=== PATIENT | male | born 1965 ===

== ENCOUNTER 2017-08-20 19:13 | Inpatient (IN) | payer MEDICAID ==
--- NOTE | 2017-08-20 19:52 | C.PDOC ---
History Of Present Illness Patient is a 52 y/o male who presents to the ED with complaints of increased abdominal girth and increased SOB. Patient is currently speaking in 2-3 word sentences in the ED. Patient has a Hx of liver disease. Denies any use of medications. Patient has no other physical complaints at this time. Time Seen by Provider: 08/20/17 19:52 Chief Complaint (Nursing): Shortness Of Breath History Per: Patient History/Exam Limitations: no limitations Onset/Duration Of Symptoms: Gradual Current Symptoms Are (Timing): Still Present Quality: Dull Current Respiratory Medications: See Home Med List Severity: Moderate Pain Scale Rating Of: 4 Associated Symptoms: Other (increased abdominal girth). denies: Fever, Chills Recent travel outside of the [place]: No Additional History Per: Family Past Medical History Reviewed: Historical Data, Nursing Documentation, Vital Signs Vital Signs: Last Vital Signs Temp 98.9 F 08/20/17 19:38 Pulse 102 H 08/20/17 21:45 Resp 26 H 08/20/17 21:45 BP 122/82 08/20/17 21:45 Pulse Ox 97 08/20/17 21:45 - Medical History Other PMH: Liver disease Surgical History: No Surg Hx Family History: States: No Known Family Hx - Social History Hx Tobacco Use: No Hx Alcohol Use: Yes (stopped 1 month ago) Hx Substance Use: No Review Of Systems Constitutional: Negative for: Fever, Chills Eyes: Negative for: Redness ENT: Negative for: Throat Pain Cardiovascular: Negative for: Chest Pain Respiratory: Positive for: Shortness of Breath Gastrointestinal: Positive for: Abdominal Pain, Other (increased abdominal girth ). Negative for: Nausea, Vomiting Genitourinary: Negative for: Dysuria Musculoskeletal: Negative for: Back Pain Skin: Positive for: Jaundice Neurological: Positive for: Weakness Psych: Negative for: Anxiety Physical Exam - Physical Exam Appears: In Acute Distress (mild), Other (discheveled) Skin: Warm, Dry, Jaundice (grossly) Head: Normacephalic Eye(s): bilateral: Normal Inspection, Scleral Icterus Oral Mucosa: Moist Neck: Trachea Midline, Supple Chest: Symmetrical Cardiovascular: Rhythm Regular, No Murmur Respiratory: Rales (scattered at bilateral bases), No Rhonchi, No Wheezing, Other (speaking in 2-3 word sentences) Gastrointestinal/Abdominal: Bowel Sounds (tympanic), Tenderness (mild), Distention, No Guarding, No Rebound, Ascites, Other (positive fluid wave) Back: No CVA Tenderness Extremity: Pedal Edema (bilaterally), No Calf Tenderness Extremity: Bilateral: Atraumatic Pulses: Left Dorsalis Pedis: Normal, Right Dorsalis Pedis: Normal Neurological/Psych: Oriented x3 Gait: Other (limited mobility secondary to increased abdominal girth) ED Course And Treatment - Laboratory Results Result Diagrams: 08/20/17 20:30 08/20/17 20:30 O2 Sat by Pulse Oximetry: 96 (room air) Pulse Ox Interpretation: Normal - Radiology CXR: Interpreted by Me, Viewed By Me CXR Interpretation: No: Infiltrates, Fracture, Pnemothorax Progress Note: VBG, UA, and blood work ordered. Disposition Discussed With DrMaki: Mani Aleman Comment: accepted the pt on his service and took over the care at 11:24 PM Doctor Will See Patient In The: ED Counseled Patient/Family Regarding: Studies Performed, Diagnosis - Disposition Disposition: HOSPITALIZED Disposition Time: 19:52 Condition: FAIR Forms: [facility] (Danish) - POA Present On Arrival: Poor Glycemic Control - Clinical Impression Clinical Impression: Dyspnea, Jaundice, Renal insufficiency, Hyperammonemia - Scribe Statement The provider has reviewed the documentation as recorded by the Scribe Freda Yuossef All medical record entries made by the Scribe were at my direction and personally dictated by me. I have reviewed the chart and agree that the record accurately reflects my personal performance of the history, physical exam, medical decision making, and the department course for this patient. I have also personally directed, reviewed, and agree with the discharge instructions and disposition. Decision To Admit - Pt Status Changed To: Hospital Disposition Of: Inpatient - Admit Certification Admit to Inpatient:: After my assessment, the patient will require hospitalization for at least two midnights. This is because of the severity of symptoms shown, intensity of services needed, and/or the medical risk in this patient being treated as an outpatient. - InPatient: Physician Admission Certification: I certify that this patient requires 2 or more midnights of care for the following reason:: After my assessment, the patient will require hospitalization for at least two midnights. This is because of the severity of symptoms shown, intensity of services needed, and/or the medical risk in this patient being treated as an outpatient. - . Bed Request Type: Regular Admitting Physician: Mani Aleman Patient Diagnosis: Dyspnea, Jaundice, Renal insufficiency, Hyperammonemia
[2017-08-20 20:38] LABS: VENOUS BLOOD GAS BASE EXCESS -2.4 mmol/L (0.0-2.0); VENOUS BLOOD GAS PCO2 34 mmHg (40-60); VENOUS BLOOD GAS PO2 22 mm/Hg (30-55); VENOUS BLOOD PH 7.41 (7.32-7.43)
[2017-08-20 20:39] LABS: BASO # 0.1 K/uL (0.0-0.2); BASO % 0.6 % (0.0-2.0); EOS # 0.2 K/uL (0.0-0.7); EOS % 1.5 % (0.0-4.0); HEMOGLOBIN 12.2 g/dL (12.0-18.0); LYMPH # 2.5 K/uL (1.0-4.3); MEAN CORPUSCULAR HEMOGLOBIN 39.3 pg (27.0-31.0); MEAN PLATELET VOLUME 9.6 fL (7.2-11.7); MONO # 1.2 K/uL (0.0-0.8); MONO % 8.4 % (0.0-10.0); NEUT # 10.6 K/uL (1.8-7.0); NEUT % 72.5 % (50.0-75.0); RBC 3.11 Mil/uL (4.40-5.90); WHITE BLOOD COUNT 14.6 K/uL (4.8-10.8)
[2017-08-20 20:50] LABS: INR 1.5; PROTHROMBIN TIME 17.3 SECONDS (9.7-12.2)
[2017-08-20 21:00] LABS: ALB/GLOB RATIO 0.5 (1.0-2.1); ALBUMIN 2.9 g/dL (3.5-5.0); CALCIUM 7.9 mg/dl (8.6-10.4)
[2017-08-20] MEDS ORDERED: Morphine 4 MG/ML VIAL ONE (21:54)
[2017-08-20 22:13] LABS: MEAN CELL VOLUME 109.1 fL (80.0-94.0)
[2017-08-21] MEDS ORDERED: Thiamine 100 mg/ml Inj IV ONE (00:27)
--- NOTE | 2017-08-21 00:45 | CP.PCM.HP ---
<Josh Way - Last Filed: 08/21/17 01:46> History of Present Illness - History of Present Illness History of Present Illness: CC: abdominal distension with difficulty breathing Patient is a 52 year old male who presents to the ED with shortness of breath and abdominal fullness for the past 3 weeks. He is accompanied by his and daughter who offer details of his history. They explain that on July 29, 2017 , the patient went to [place] urgent care for similar symptoms and was told he has liver disease. Patient does not have a PMD due to lack of insurance and so, he did not follow up with any doctors after that visit. He is presenting to the ED this evening with persistent abdominal distention, associated with difficulty breathing and right sided lower back pain. He denies fevers, chills, chest pain, abdominal pain, changes in bowel movements. He reports that his urine has been dark red for several weeks now. He does have nausea but he has not vomited. Abdominal distention has also left him with lack of appetite secondary to "pressure on the stomach." This patient does not have any documented history of any medical conditions and he does not take any medicines currently. His and daughter explain that he has an extensive history of alcohol abuse and the patient acknowledges this however he states that he stopped drinking 2-3 months ago. The family insists that it was one month ago when he stopped consuming any form of alcohol. Prior alcohol consumption was clarified as 2 bottles of whiskey daily in addition to several beers for 20-30 years. The family and the patient but deny any seizures, loss of consciousness. Upon examination the patient is alert and responsive however his words are difficult to discern. His daughter states that he has been making nonsensical commentary this evening at times but he answers appropriately for the most part. PMD: None. patient does not have insurance PMH: "Liver Disease" Surg Hx: None Home Meds: None Allergies: NKDA Family Hx: Denies Social Hx: Patient reports drinking 2 bottles of whiskey along with several beers daily for 20-30 years but has stopped drinking the last month. Denies tobacco use and reports using marijuana years ago but not currently. Present on Admission - Present on Admission Any Indicators Present on Admission: No Review of Systems - Review of Systems Systems not reviewed;Unavailable: Altered Mental Status (questionable) - Constitutional Constitutional: Lethargy. absent: Chills, Fever - EENT Eyes: Other (yellowing of eyes). absent: Blurred Vision, Change in Vision - Cardiovascular Cardiovascular: Dyspnea (difficulty taking deep breaths), Pedal Edema. absent: Chest Pain, Diaphoresis - Respiratory Respiratory: As Per HPI, Dyspnea. absent: Cough, Wheezing - Gastrointestinal Gastrointestinal: As Per HPI, Constipation, Other (distended abdomen). absent: Abdominal Pain - Genitourinary Genitourinary: Flank Pain (right), Hematuria (dark-reddish urine) - Integumentary Integumentary: Jaundice - Neurological Neurological: Confusion. absent: Convulsions, Loss of Vision, Syncope, Tingling , Weakness - Hematologic/Lymphatic Hematologic: Easy Bleeding Past Patient History - Infectious Disease Hx of Infectious Diseases: None - Past Social History Smoking Status: Never Smoked - GASTROINTESTINAL Other/Comment: liver problem - PSYCHIATRIC Hx Substance Use: No - SURGICAL HISTORY Hx Surgeries: No Meds Allergies/Adverse Reactions: Allergies Allergy/AdvReac Type Severity Reaction Status Date / Time No Known Allergies Allergy Verified 08/20/17 19:36 Physical Exam - Head Exam Head Exam: ATRAUMATIC, NORMOCEPHALIC - Eye Exam Eye Exam: EOMI, Scleral icterus Pupil Exam: PERRL - ENT Exam ENT Exam: Mucous Membranes Moist Additional comments: blood on lips/in mouth that is dried - Respiratory Exam Respiratory Exam: Decreased Breath Sounds. absent: Accessory Muscle Use, Rhonchi, Wheezes, Respiratory Distress - Cardiovascular Exam Cardiovascular Exam: REGULAR RHYTHM, +S1, +S2 - GI/Abdominal Exam GI & Abdominal Exam: Distended, Firm. absent: Guarding, Tenderness - Extremities Exam Extremities exam: Positive for: pedal edema (+2 bilaterally) - Back Exam Back exam: CVA tenderness (R) - Neurological Exam Neurological exam: Alert - Skin Skin Exam: Dry, Warm Additional comments: jaundice diffuse- abdomen, trunk, eyes, face Results - Vital Signs Recent Vital Signs: Last Vital Signs Temp 98.9 F 08/20/17 19:38 Pulse 102 H 08/20/17 21:45 Resp 26 H 08/20/17 21:45 BP 122/82 08/20/17 21:45 Pulse Ox 96 08/20/17 23:27 - Labs Result Diagrams: 08/20/17 20:30 08/20/17 20:30 Labs: Laboratory Results - last 24 hr 08/20/17 08/20/17 08/20/17 20:30 20:30 20:30 WBC 14.6 H RBC 3.11 L Hgb 12.2 Hct 33.9 L MCV 109.1 H MCH 39.3 H MCHC 36.0 RDW 14.0 Plt Count 269 MPV 9.6 Neut % (Auto) 72.5 Lymph % (Auto) 17.0 L [place] % (Auto) 8.4 Eos % (Auto) 1.5 Baso % (Auto) 0.6 Neut # (Auto) 10.6 H Lymph # (Auto) 2.5 [place] # (Auto) 1.2 H Eos # (Auto) 0.2 Baso # (Auto) 0.1 PT 17.3 H INR 1.5 APTT 34 pO2 VBG pH VBG pCO2 VBG HCO3 VBG Total CO2 VBG O2 Sat (Calc) VBG Base Excess VBG Potassium Sodium 126 L Chloride 92 L Glucose Lactate FiO2 Potassium 3.7 Carbon Dioxide 20 L Anion Gap 18 BUN 47 H Creatinine 3.3 H Est GFR ( Amer) 24 Est GFR (Non-Af Amer) 20 Random Glucose 129 H Calcium 7.9 L Total Bilirubin 27.4 H AST 178 H ALT 60 Alkaline Phosphatase 210 H Ammonia NT-Pro-B Natriuret Pep 177 Total Protein 8.8 H Albumin 2.9 L Globulin 5.9 H Albumin/Globulin Ratio 0.5 L Lipase 277 Venous Blood Potassium 08/20/17 08/20/17 20:30 20:30 WBC RBC Hgb Hct MCV MCH MCHC RDW Plt Count MPV Neut % (Auto) Lymph % (Auto) [place] % (Auto) Eos % (Auto) Baso % (Auto) Neut # (Auto) Lymph # (Auto) [place] # (Auto) Eos # (Auto) Baso # (Auto) PT INR APTT pO2 22 L VBG pH 7.41 VBG pCO2 34 L VBG HCO3 21.4 VBG Total CO2 22.6 VBG O2 Sat (Calc) 40.1 VBG Base Excess -2.4 L VBG Potassium 3.8 Sodium 128.0 L Chloride 94.0 L Glucose 125 H Lactate 2.6 H FiO2 21.0 Potassium Carbon Dioxide Anion Gap BUN Creatinine Est GFR ( Amer) Est GFR (Non-Af Amer) Random Glucose Calcium Total Bilirubin AST ALT Alkaline Phosphatase Ammonia 78 H NT-Pro-B Natriuret Pep Total Protein Albumin Globulin Albumin/Globulin Ratio Lipase Venous Blood Potassium 3.8 Assessment & Plan - Assessment and Plan (Free Text) Plan: Ascites with jaundice Alcoholic liver disease vs infectious AST/ALT: 178/60 suggestive of alcohol related disease T. Bili: 27.4 Alk Phos: 210 PT/INR: 17.3/1.5 Lipase: 277 Follow up Hepatitis Panel Follow up UDS Follow up GGT Follow up Lipid panel Follow up amylase GI consult placed- Dr. Tony cooper appreciated NPO Follow up abdominal ultrasound Referral for paracentesis to be considered following results JUAN M No documented history of renal disease Pt has been experiencing hematuria x3 weeks Nephro consult place- Dr. Alejandro cooper appreciated BUN/Cr on admission: 47/3.3 Follow up renal/bladder ultrasound Hyperammonemia Lactulose 20mg PO given in ED x1 Follow up labs Dyspnea Likely secondary to increased intra-abdominal pressure from ascites VBG: PH- 7.41, CO2- 34, HCO3- 21.4 Follow up CXR results 02 via NC 2L Monitor vitals Hyponatremia 126 on admission Follow up AM labs NPO- fluid restriction Hx of EtOH abuse Thiamine/Folate/MV CIWA protocol Elevated blood glucose Follow up A1C Prophylaxis Protonix 40mg IV daily DVT ppx contraindicated due to bleeding risk Case discussed with Dr. Love Way D.O. <Mani Aleman - Last Filed: 08/21/17 06:05> Results - Vital Signs Recent Vital Signs: Last Vital Signs Temp 97.9 F 08/21/17 03:50 Pulse 96 H 08/21/17 03:50 Resp 18 08/21/17 04:22 BP 116/77 08/21/17 03:50 Pulse Ox 97 08/21/17 04:22 - Labs Result Diagrams: 08/20/17 20:30 08/20/17 20:30 Labs: Laboratory Results - last 24 hr 08/20/17 08/20/17 08/20/17 20:30 20:30 20:30 WBC 14.6 H RBC 3.11 L Hgb 12.2 Hct 33.9 L MCV 109.1 H MCH 39.3 H MCHC 36.0 RDW 14.0 Plt Count 269 MPV 9.6 Neut % (Auto) 72.5 Lymph % (Auto) 17.0 L [place] % (Auto) 8.4 Eos % (Auto) 1.5 Baso % (Auto) 0.6 Neut # (Auto) 10.6 H Lymph # (Auto) 2.5 [place] # (Auto) 1.2 H Eos # (Auto) 0.2 Baso # (Auto) 0.1 PT 17.3 H INR 1.5 APTT 34 pO2 VBG pH VBG pCO2 VBG HCO3 VBG Total CO2 VBG O2 Sat (Calc) VBG Base Excess VBG Potassium Sodium 126 L Chloride 92 L Glucose Lactate FiO2 Potassium 3.7 Carbon Dioxide 20 L Anion Gap 18 BUN 47 H Creatinine 3.3 H Est GFR ( Amer) 24 Est GFR (Non-Af Amer) 20 POC Glucose (mg/dL) Random Glucose 129 H Calcium 7.9 L Total Bilirubin 27.4 H AST 178 H ALT 60 Alkaline Phosphatase 210 H Ammonia NT-Pro-B Natriuret Pep 177 Total Protein 8.8 H Albumin 2.9 L Globulin 5.9 H Albumin/Globulin Ratio 0.5 L Lipase 277 Venous Blood Potassium 08/20/17 08/20/17 08/21/17 20:30 20:30 00:28 WBC RBC Hgb Hct MCV MCH MCHC RDW Plt Count MPV Neut % (Auto) Lymph % (Auto) [place] % (Auto) Eos % (Auto) Baso % (Auto) Neut # (Auto) Lymph # (Auto) [place] # (Auto) Eos # (Auto) Baso # (Auto) PT INR APTT pO2 22 L VBG pH 7.41 VBG pCO2 34 L VBG HCO3 21.4 VBG Total CO2 22.6 VBG O2 Sat (Calc) 40.1 VBG Base Excess -2.4 L VBG Potassium 3.8 Sodium 128.0 L Chloride 94.0 L Glucose 125 H Lactate 2.6 H FiO2 21.0 Potassium Carbon Dioxide Anion Gap BUN Creatinine Est GFR ( Amer) Est GFR (Non-Af Amer) POC Glucose (mg/dL) 100 Random Glucose Calcium Total Bilirubin AST ALT Alkaline Phosphatase Ammonia 78 H NT-Pro-B Natriuret Pep Total Protein Albumin Globulin Albumin/Globulin Ratio Lipase Venous Blood Potassium 3.8 Assessment & Plan - Date & Time Date: 08/21/17 (I have seen and examined the patient. I agree with the findings and plan of care as documented by Dr. Way. 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 Check Hep panel. [facility] protocol for history of alcohol abuse. Likely need for paracentesis. Consult GI. Consult Nephro for acute kidney injury. Monitor for acute changes.) Time: 06:03 Attending/Attestation - Attestation I have personally seen and examined this patient.: Yes I have fully participated in the care of the patient.: Yes I have reviewed all pertinent clinical information: Yes
[2017-08-21] MEDS ORDERED: Albumin Human 25% (12.5 gm/50 ml) IV ONE (01:32)
--- NOTE | 2017-08-21 04:05 | US ---
EXAM: US Abdomen Limited, Right Upper Quadrant CLINICAL HISTORY: 52 years old, male; Condition or disease; Liver condition; Cirrhosis; Additional info: Ascites/liver disease TECHNIQUE: Real-time ultrasound of the right upper quadrant with image documentation. COMPARISON: No relevant prior studies available. FINDINGS: Liver: Lobulated contour. Increase echogenicity. No definite mass. No intrahepatic ductal dilatation. Hepatofugal flow within portal vein. Gallbladder: No gallstones. Sludge. 0.5 cm wall thickness. No sonographic Watson's sign. Common bile duct: No dilatation. No stones. Pancreas: Unremarkable as visualized. Free fluid: Moderate to large free fluid within abdomen. IMPRESSION: 1. Cirrhosis with ascites. 2. Gallbladder sludge with wall thickening. Clinical correlation is needed. 3. Incidental/non-acute findings are described above.
--- NOTE | 2017-08-21 04:07 | US ---
EXAM: US Retroperitoneal Limited, Renal CLINICAL HISTORY: 52 years old, male; Signs and symptoms; Other: Reddy TECHNIQUE: Real-time ultrasound of the retroperitoneum (limited) with image documentation. COMPARISON: No relevant prior studies available. FINDINGS: Right kidney: Increased in echogenicity. No mass. No calculi. No hydronephrosis. Left kidney: Increased in echogenicity. No mass. No calculi. No hydronephrosis. Bladder: Unremarkable. Free fluid: Moderate to large free fluid within abdomen and pelvis. IMPRESSION: 1. Echogenic kidneys suggesting medical renal disease. 2. Incidental/non-acute findings are described above.
[2017-08-21 07:11] LABS: BASO # 0.1 K/uL (0.0-0.2); BASO % 0.3 % (0.0-2.0); EOS # 0.2 K/uL (0.0-0.7); EOS % 1.3 % (0.0-4.0); HEMOGLOBIN 10.6 g/dL (12.0-18.0); LYMPH # 2.1 K/uL (1.0-4.3); LYMPH % 13.2 % (20.0-40.0); MEAN CELL VOLUME 108.4 fL (80.0-94.0); MEAN CORPUSCULAR HEMOGLOBIN 39.2 pg (27.0-31.0); MEAN CORPUSCULAR HGB CONC 36.2 g/dL (33.0-37.0); MEAN PLATELET VOLUME 9.5 fL (7.2-11.7); MONO # 1.9 K/uL (0.0-0.8); MONO % 11.6 % (0.0-10.0); NEUT # 11.8 K/uL (1.8-7.0); NEUT % 73.6 % (50.0-75.0); RBC 2.7 Mil/uL (4.40-5.90); RED CELL DISTRIBUTION WIDTH 14.1 % (11.5-14.5); WHITE BLOOD COUNT 16.1 K/uL (4.8-10.8)
[2017-08-21 07:23] LABS: INR 1.6; PROTHROMBIN TIME 18.4 SECONDS (9.7-12.2)
--- NOTE | 2017-08-21 07:49 | CP.PCM.PN ---
Subjective - Date & Time of Evaluation Date of Evaluation: 08/21/17 Time of Evaluation: 09:20 - Subjective Subjective: Medicine progress note for Dr. Subramanian Patient seen and examined. Patient was sleepy this morning and hard to arouse. Patient was able to tell me that he had no acute complaints at this time, denying fever, chills, chest pain, dyspnea, abdominal pain, dysuria. Patient later seen on rounds in the presence of his daughter where with his permission, his diagnosis was discussed. Objective - Vital Signs/Intake and Output Vital Signs (last 24 hours): Temp Pulse Resp BP Pulse Ox 97.9 F 96 H 18 116/77 97 08/21/17 03:50 08/21/17 03:50 08/21/17 04:22 08/21/17 03:50 08/21/17 04:22 - Medications Medications: Current Medications Folic Acid (Folic Acid) 1 mg PO DAILY ATIF Lactulose (Enulose) 20 gm PO BID ATIF Morphine Sulfate (Morphine) 1 mg IVP Q4H PRN PRN Reason: Pain, severe (8-10) Multivitamins (Hexavitamin) 1 tab PO DAILY ATIF Pantoprazole Sodium (Protonix Inj) 40 mg IVP DAILY ATIF Pneumococcal Polyvalent Vaccine (Pneumovax 23 Vaccine) 0.5 ml IM .ONCE ONE Stop: 08/21/17 10:01 Rifaximin (Xifaxan) 550 mg PO BID ATIF Thiamine HCl (Vitamin B1 Tab) 100 mg PO DAILY ATIF - Labs Labs: 08/21/17 06:45 PT 18.4 SECONDS (9.7-12.2) H 08/21/17 06:45 INR 1.6 08/21/17 06:45 APTT 34 SECONDS (21-34) 08/20/17 20:30 - Constitutional Appears: No Acute Distress - Head Exam Head Exam: ATRAUMATIC, NORMOCEPHALIC - Eye Exam Eye Exam: EOMI, Scleral icterus - ENT Exam ENT Exam: Mucous Membranes Moist - Respiratory Exam Respiratory Exam: Decreased Breath Sounds, NORMAL BREATHING PATTERN. absent: Rales, Rhonchi, Wheezes - Cardiovascular Exam Cardiovascular Exam: REGULAR RHYTHM, +S1, +S2 - GI/Abdominal Exam GI & Abdominal Exam: Distended, Normal Bowel Sounds. absent: Guarding, Tenderness - Extremities Exam Extremities Exam: Pedal Edema - Neurological Exam Neurological Exam: Alert, Awake, Oriented x3 - Psychiatric Exam Psychiatric exam: Anxious - Skin Skin Exam: Dry, Warm Additional comments: skin jaundiced Assessment and Plan - Assessment and Plan (Free Text) Plan: Ascites with jaundice Alcoholic liver disease vs infectious Negative hepatitis panel GI consult placed- Dr. Tony cooper appreciated Abdominal ultrasound confirms cirrhosis Paracentesis 08/21/17 removed 6 liters of straw colored fluid Albumin replenishment x 8 doses on 08/21/17, 6 doses on 08/22/17, and 6 doses on 08/23 per GI Per GI, holding off on Aldactone and Propranolol due to JUAN M JUAN M No documented history of renal disease Nephro consult place- Dr. Roman- kenneth appreciated Follow up renal/bladder ultrasound shows medical renal disease and unremarkable bladder ultrasound f/u urine lytes Hyperammonemia Lactulose 20mg PO BID Rifaximin 550 mg PO BID Patient more awake and alert today on rounds Dyspnea Likely secondary to increased intra-abdominal pressure from ascites VBG: PH- 7.41, CO2- 34, HCO3- 21.4 f/u repeat lactate Monitor Hyponatremia Fluid restricted 1200 cc Monitor Hx of EtOH abuse Thiamine/Folate/MVI CIWA protocol Elevated blood glucose Hemoglobin A1C: 4.0 Prophylaxis PPI discontinued per GI DVT ppx contraindicated due to bleeding risk Disposition: Poor prognosis with MELD score of 38. [employer] referral. Will await records from [place]. Echo ordered to assess cardiac status. Will get palliative care on board tomorrow instead of today to give patient time to process his diagnosis. Patient unaware he had cirrhosis. Case DW Dr. Moris Ta PGY-1
[2017-08-21 07:54] LABS: HEPATITIS A IGM NEGATIVE (NEGATIVE); HEPATITIS B CORE AB NEGATIVE (NEGATIVE); HEPATITIS B SURFACE AG Negative (NEGATIVE); HEPATITIS C ANTIBODY NEGATIVE (NEGATIVE)
[2017-08-21 07:55] LABS: ALB/GLOB RATIO 0.5 (1.0-2.1); ALBUMIN 2.7 g/dL (3.5-5.0); CALCIUM 7.8 mg/dl (8.6-10.4)
[2017-08-21] MEDS ORDERED: Sodium Chloride 0.9% 500 ML IV ONE (08:19)
--- NOTE | 2017-08-21 08:56 | CP.PCM.CON ---
<Yonny Casas - Last Filed: 08/21/17 09:45> History of Present Illness - History of Present Illness History of Present Illness: GI Consult note: 52 M with PMHx of ETOH abuse and "Liver disease" who presents to the ED with abdominal fullness and shortness of breath. Patient states that his symptoms has been going on for the past few weeks and has gotten progressively worse. He complains of poor appetite which he attributes to the abdominal distention. Patient admits to history of ETOH abuse with 1 pint of whiskey >30 years. He states that he was in [facility] (urgent care) on 07/29/2017 for similar complaints and they told him that he has liver disease. Pt has no insurance therefore has not followed up with anyone as an outpatient. He states that a paracentesis was performed at the time, 4 L removed, they told him that he has an infection but does not recall type of infection. Patient has also been complaining of darker urine than usual for the past few weeks. He denies any history of HE. He also denies any fevers, chills, nausea, vomiting, hematemesis, chest pain, diarrhea, constipation, melena or hematochezia.. In the ED labwork was done and patient was found to have WBC 14.6; Na 126; Cr 3.3; INR 1.5; AST 178; ALT 60; Alp 210; T. bili 27.4; Serjio 78; Albumin 2.9. Abd US showed Cirrhosis with moderate to large ascites, gallbladder sludge with wall thickening. GI team consulted for liver disease. 12 Point ROS performed and negative other than stated above PMH: Liver Disease Surg Hx: None Meds: None Allergies: NKDA Fam Hx: Denies Social Hx: pint of whiskey along with several beers daily for 20-30 years but sober for the past 1-2 months. Denies tobacco use and reports using marijuana years ago but not currently. Endo Hx: denies Review of Systems - Review of Systems All systems: reviewed and no additional remarkable complaints except Past Patient History - Infectious Disease Hx of Infectious Diseases: None - Past Medical History & Family History Past Medical History?: Yes - Past Social History Smoking Status: Light Smoker < 10 Cigarettes Daily - CARDIAC Hx Cardiac Disorders: No - PULMONARY Hx Respiratory Disorders: No - NEUROLOGICAL Hx Neurological Disorder: No - HEENT Hx HEENT Problems: No - RENAL Hx Chronic Kidney Disease: No - ENDOCRINE/METABOLIC Hx Endocrine Disorders: No - HEMATOLOGICAL/ONCOLOGICAL Hx Blood Disorders: Yes Hx Cirrhosis: Yes (liver disease) - INTEGUMENTARY Hx Dermatological Problems: No - MUSCULOSKELETAL/RHEUMATOLOGICAL Hx Falls: No - GASTROINTESTINAL Hx Gastrointestinal Disorders: Yes Other/Comment: liver problem - GENITOURINARY/GYNECOLOGICAL Hx Genitourinary Disorders: No - PSYCHIATRIC Hx Substance Use: Yes (marijuana) - SURGICAL HISTORY Hx Surgeries: No - ANESTHESIA Hx Anesthesia: No Hx Anesthesia Reactions: No Hx Malignant Hyperthermia: No Has any member of the family had a problem w/ anesthesia?: No Meds Allergies/Adverse Reactions: Allergies Allergy/AdvReac Type Severity Reaction Status Date / Time No Known Allergies Allergy Verified 08/20/17 19:36 - Medications Medications: Current Medications Albumin Human (Albumin Human 25% (12.5 Gm/50 Ml)) 75 gm IV DAILY [facility] Stop: 08/24/17 10:01 Folic Acid (Folic Acid) 1 mg PO DAILY [facility] Lactulose (Enulose) 20 gm PO BID ATIF Morphine Sulfate (Morphine) 1 mg IVP Q4H PRN PRN Reason: Pain, severe (8-10) Multivitamins (Hexavitamin) 1 tab PO DAILY [facility] Pneumococcal Polyvalent Vaccine (Pneumovax 23 Vaccine) 0.5 ml IM .ONCE ONE Stop: 08/21/17 10:01 Rifaximin (Xifaxan) 550 mg PO BID [facility] Thiamine HCl (Vitamin B1 Tab) 100 mg PO DAILY [facility] Physical Exam - Constitutional Appears: No Acute Distress - Head Exam Head Exam: ATRAUMATIC, NORMOCEPHALIC - Eye Exam Eye Exam: EOMI, PERRL Pupil Exam: NORMAL ACCOMODATION - ENT Exam ENT Exam: Mucous Membranes Moist - Respiratory Exam Respiratory Exam: Clear to Auscultation Bilateral. absent: Rales, Wheezes - Cardiovascular Exam Cardiovascular Exam: REGULAR RHYTHM, RRR, +S1, +S2 - GI/Abdominal Exam GI & Abdominal Exam: Distended, Normal Bowel Sounds, Tenderness. absent: Organomegaly Additional comments: Distended with mild tenderness to palpation; - Extremities Exam Extremities exam: Negative for: calf tenderness, pedal edema - Neurological Exam Neurological exam: Alert, Oriented x3 - Psychiatric Exam Psychiatric exam: Normal Mood - Skin Skin Exam: Dry, Intact, Warm Results - Vital Signs Recent Vital Signs: Last Vital Signs Temp 98.0 F 08/21/17 07:58 Pulse 92 H 08/21/17 07:58 Resp 20 08/21/17 07:58 BP 102/69 08/21/17 07:58 Pulse Ox 97 08/21/17 07:58 - Labs Result Diagrams: 08/21/17 06:45 08/21/17 06:45 Labs: Laboratory Results - last 24 hr 08/20/17 08/20/17 08/20/17 20:30 20:30 20:30 WBC 14.6 H RBC 3.11 L Hgb 12.2 Hct 33.9 L MCV 109.1 H MCH 39.3 H MCHC 36.0 RDW 14.0 Plt Count 269 MPV 9.6 Neut % (Auto) 72.5 Lymph % (Auto) 17.0 L [place] % (Auto) 8.4 Eos % (Auto) 1.5 Baso % (Auto) 0.6 Neut # (Auto) 10.6 H Lymph # (Auto) 2.5 [place] # (Auto) 1.2 H Eos # (Auto) 0.2 Baso # (Auto) 0.1 PT 17.3 H INR 1.5 APTT 34 pO2 VBG pH VBG pCO2 VBG HCO3 VBG Total CO2 VBG O2 Sat (Calc) VBG Base Excess VBG Potassium Sodium 126 L Chloride 92 L Glucose Lactate FiO2 Potassium 3.7 Carbon Dioxide 20 L Anion Gap 18 BUN 47 H Creatinine 3.3 H Est GFR ( Amer) 24 Est GFR (Non-Af Amer) 20 POC Glucose (mg/dL) Random Glucose 129 H Hemoglobin A1c Calcium 7.9 L Total Bilirubin 27.4 H GGT AST 178 H ALT 60 Alkaline Phosphatase 210 H Ammonia NT-Pro-B Natriuret Pep 177 Total Protein 8.8 H Albumin 2.9 L Globulin 5.9 H Albumin/Globulin Ratio 0.5 L Triglycerides Cholesterol LDL Cholesterol Direct HDL Cholesterol Amylase Lipase 277 Venous Blood Potassium Hepatitis A IgM Ab Hep Bs Antigen Hep B Core IgM Ab Hepatitis C Antibody 08/20/17 08/20/17 08/21/17 20:30 20:30 00:28 WBC RBC Hgb Hct MCV MCH MCHC RDW Plt Count MPV Neut % (Auto) Lymph % (Auto) [place] % (Auto) Eos % (Auto) Baso % (Auto) Neut # (Auto) Lymph # (Auto) [place] # (Auto) Eos # (Auto) Baso # (Auto) PT INR APTT pO2 22 L VBG pH 7.41 VBG pCO2 34 L VBG HCO3 21.4 VBG Total CO2 22.6 VBG O2 Sat (Calc) 40.1 VBG Base Excess -2.4 L VBG Potassium 3.8 Sodium 128.0 L Chloride 94.0 L Glucose 125 H Lactate 2.6 H FiO2 21.0 Potassium Carbon Dioxide Anion Gap BUN Creatinine Est GFR ( Amer) Est GFR (Non-Af Amer) POC Glucose (mg/dL) 100 Random Glucose Hemoglobin A1c Calcium Total Bilirubin GGT AST ALT Alkaline Phosphatase Ammonia 78 H NT-Pro-B Natriuret Pep Total Protein Albumin Globulin Albumin/Globulin Ratio Triglycerides Cholesterol LDL Cholesterol Direct HDL Cholesterol Amylase Lipase Venous Blood Potassium 3.8 Hepatitis A IgM Ab Hep Bs Antigen Hep B Core IgM Ab Hepatitis C Antibody 08/21/17 08/21/17 08/21/17 06:45 06:45 06:45 WBC 16.1 H RBC 2.70 L Hgb 10.6 L Hct 29.3 L MCV 108.4 H MCH 39.2 H MCHC 36.2 RDW 14.1 Plt Count 257 MPV 9.5 Neut % (Auto) 73.6 Lymph % (Auto) 13.2 L [place] % (Auto) 11.6 H Eos % (Auto) 1.3 Baso % (Auto) 0.3 Neut # (Auto) 11.8 H Lymph # (Auto) 2.1 [place] # (Auto) 1.9 H Eos # (Auto) 0.2 Baso # (Auto) 0.1 PT 18.4 H INR 1.6 APTT pO2 VBG pH VBG pCO2 VBG HCO3 VBG Total CO2 VBG O2 Sat (Calc) VBG Base Excess VBG Potassium Sodium 124 L Chloride 93 L Glucose Lactate FiO2 Potassium 3.7 Carbon Dioxide 20 L Anion Gap 15 BUN 51 H Creatinine 3.5 H Est GFR ( Amer) 22 Est GFR (Non-Af Amer) 18 POC Glucose (mg/dL) Random Glucose 99 Hemoglobin A1c Calcium 7.8 L Total Bilirubin 23.9 H GGT 227 H AST 153 H ALT 47 Alkaline Phosphatase 166 H D Ammonia NT-Pro-B Natriuret Pep Total Protein 7.7 Albumin 2.7 L Globulin 5.0 H Albumin/Globulin Ratio 0.5 L Triglycerides 214 H Cholesterol 116 LDL Cholesterol Direct 75 HDL Cholesterol 6 L Amylase 130 H Lipase Venous Blood Potassium Hepatitis A IgM Ab Hep Bs Antigen Hep B Core IgM Ab Hepatitis C Antibody 08/21/17 08/21/17 08/21/17 06:45 06:45 06:45 WBC RBC Hgb Hct MCV MCH MCHC RDW Plt Count MPV Neut % (Auto) Lymph % (Auto) [place] % (Auto) Eos % (Auto) Baso % (Auto) Neut # (Auto) Lymph # (Auto) [place] # (Auto) Eos # (Auto) Baso # (Auto) PT INR APTT pO2 VBG pH VBG pCO2 VBG HCO3 VBG Total CO2 VBG O2 Sat (Calc) VBG Base Excess VBG Potassium Sodium Chloride Glucose Lactate FiO2 Potassium Carbon Dioxide Anion Gap BUN Creatinine Est GFR ( Amer) Est GFR (Non-Af Amer) POC Glucose (mg/dL) Random Glucose Hemoglobin A1c 4.0 L Calcium Total Bilirubin GGT AST ALT Alkaline Phosphatase Ammonia 71 H NT-Pro-B Natriuret Pep Total Protein Albumin Globulin Albumin/Globulin Ratio Triglycerides Cholesterol LDL Cholesterol Direct HDL Cholesterol Amylase Lipase Venous Blood Potassium Hepatitis A IgM Ab Negative Hep Bs Antigen Negative Hep B Core IgM Ab Negative Hepatitis C Antibody Negative 08/21/17 07:23 WBC RBC Hgb Hct MCV MCH MCHC RDW Plt Count MPV Neut % (Auto) Lymph % (Auto) [place] % (Auto) Eos % (Auto) Baso % (Auto) Neut # (Auto) Lymph # (Auto) [place] # (Auto) Eos # (Auto) Baso # (Auto) PT INR APTT pO2 VBG pH VBG pCO2 VBG HCO3 VBG Total CO2 VBG O2 Sat (Calc) VBG Base Excess VBG Potassium Sodium Chloride Glucose Lactate FiO2 Potassium Carbon Dioxide Anion Gap BUN Creatinine Est GFR ( Amer) Est GFR (Non-Af Amer) POC Glucose (mg/dL) 89 Random Glucose Hemoglobin A1c Calcium Total Bilirubin GGT AST ALT Alkaline Phosphatase Ammonia NT-Pro-B Natriuret Pep Total Protein Albumin Globulin Albumin/Globulin Ratio Triglycerides Cholesterol LDL Cholesterol Direct HDL Cholesterol Amylase Lipase Venous Blood Potassium Hepatitis A IgM Ab Hep Bs Antigen Hep B Core IgM Ab Hepatitis C Antibody Assessment & Plan - Assessment and Plan (Free Text) Assessment: 61 M with past medical history of liver disease presents with decompensated cirrhosis from presumed ETOH abuse. 1. Abdominal distension 2. Decompensated cirrhosis 3. Ascites 4. Hepatic encephalopathy 5. Suspected HRS - acute renal failure (unkown baseline) - Fluid challenge with NS 500ml bolus - Will start Albumin 1g/kg x 3 days - Urine electrolytes ordered - F/u renal US - Started on lactulose/rifaxamin for suspected HE. Lacutlose dose increased to 20mg BID to titrate to 2-3 BMs daily - IR consult - Recommend diagnostic and therapeutic paracentesis - peritoneal fluid analysis ordered to r/o SBP - F/u Nephrology consultation for suspected JUAN M vs suspected HRS - D/c any PPI - Low sodium diet as tolerated - I/O and daily weights - Avoid nephrotoxic medications - Will obtain records from [facility] from Jul 29, 2017 Pt was seen and plan discussed in detail with Dr Hinton <Manuel Hinton - Last Filed: 08/21/17 18:33> Meds - Medications Medications: Current Medications Folic Acid (Folic Acid) 1 mg PO DAILY [facility] Last Admin: 08/21/17 09:54 Dose: 1 mg Albumin Human (Albumin Human 25% (12.5 Gm/50 Ml)) 50 mls @ 50 mls/hr IV Q1H [facility] Stop: 08/22/17 15:59 Albumin Human (Albumin Human 25% (12.5 Gm/50 Ml)) 50 mls @ 50 mls/hr IV Q1H [facility] Stop: 08/23/17 15:59 Last Admin: 08/21/17 16:15 Dose: 50 mls/hr Albumin Human (Albumin Human 25% (12.5 Gm/50 Ml)) 50 mls @ 50 mls/hr IV Q1H [facility] Stop: 08/21/17 19:59 Last Admin: 08/21/17 18:06 Dose: 50 mls/hr Lactulose (Enulose) 20 gm PO BID [facility] Last Admin: 08/21/17 09:54 Dose: 20 gm Multivitamins (Hexavitamin) 1 tab PO DAILY [facility] Last Admin: 08/21/17 09:54 Dose: 1 tab Rifaximin (Xifaxan) 550 mg PO BID [facility] Last Admin: 08/21/17 11:39 Dose: Not Given Thiamine HCl (Vitamin B1 Tab) 100 mg PO DAILY [facility] Last Admin: 08/21/17 09:56 Dose: 100 mg Results - Vital Signs Recent Vital Signs: Last Vital Signs Temp 98.0 F 08/21/17 15:00 Pulse 93 H 08/21/17 15:00 Resp 20 08/21/17 15:00 BP 120/80 08/21/17 15:00 Pulse Ox 96 08/21/17 15:00 - Labs Result Diagrams: 08/21/17 06:45 08/21/17 06:45 Labs: Laboratory Results - last 24 hr 08/20/17 08/20/17 08/20/17 20:30 20:30 20:30 WBC 14.6 H RBC 3.11 L Hgb 12.2 Hct 33.9 L MCV 109.1 H MCH 39.3 H MCHC 36.0 RDW 14.0 Plt Count 269 MPV 9.6 Neut % (Auto) 72.5 Lymph % (Auto) 17.0 L [place] % (Auto) 8.4 Eos % (Auto) 1.5 Baso % (Auto) 0.6 Neut # (Auto) 10.6 H Lymph # (Auto) 2.5 [place] # (Auto) 1.2 H Eos # (Auto) 0.2 Baso # (Auto) 0.1 PT 17.3 H INR 1.5 APTT 34 pO2 VBG pH VBG pCO2 VBG HCO3 VBG Total CO2 VBG O2 Sat (Calc) VBG Base Excess VBG Potassium Sodium 126 L Chloride 92 L Glucose Lactate FiO2 Potassium 3.7 Carbon Dioxide 20 L Anion Gap 18 BUN 47 H Creatinine 3.3 H Est GFR ( Amer) 24 Est GFR (Non-Af Amer) 20 POC Glucose (mg/dL) Random Glucose 129 H Hemoglobin A1c Calcium 7.9 L Total Bilirubin 27.4 H GGT AST 178 H ALT 60 Alkaline Phosphatase 210 H Ammonia NT-Pro-B Natriuret Pep 177 Total Protein 8.8 H Albumin 2.9 L Globulin 5.9 H Albumin/Globulin Ratio 0.5 L Triglycerides Cholesterol LDL Cholesterol Direct HDL Cholesterol Amylase Lipase 277 Vitamin B12 Folate Venous Blood Potassium Urine Color Urine Clarity Urine pH Ur Specific [place] Urine Protein Urine Glucose (UA) Urine Ketones Urine Blood Urine Nitrate Urine Bilirubin Urine Urobilinogen Ur Leukocyte Esterase Urine WBC (Auto) Urine RBC (Auto) Urine Bacteria Ur Random Creatinine U Random Total Protein Ur Random Sodium Urine Microalbumin Fluid Source Fluid Appearance Fluid WBC Fluid RBC Fluid Tot Cell Count Fluid Neutrophils Fluid Lymphocytes Fld Monocyte/Macrophag Fluid Diff Path Review Fluid Comment Urine Opiates Screen Urine Methadone Screen Ur Barbiturates Screen Ur Phencyclidine Scrn Ur Amphetamines Screen U Benzodiazepines Scrn U Oth Cocaine Metabols U Cannabinoids Screen Hepatitis A IgM Ab Hep Bs Antigen Hep B Core IgM Ab Hepatitis C Antibody 08/20/17 08/20/17 08/21/17 20:30 20:30 00:28 WBC RBC Hgb Hct MCV MCH MCHC RDW Plt Count MPV Neut % (Auto) Lymph % (Auto) [place] % (Auto) Eos % (Auto) Baso % (Auto) Neut # (Auto) Lymph # (Auto) [place] # (Auto) Eos # (Auto) Baso # (Auto) PT INR APTT pO2 22 L VBG pH 7.41 VBG pCO2 34 L VBG HCO3 21.4 VBG Total CO2 22.6 VBG O2 Sat (Calc) 40.1 VBG Base Excess -2.4 L VBG Potassium 3.8 Sodium 128.0 L Chloride 94.0 L Glucose 125 H Lactate 2.6 H FiO2 21.0 Potassium Carbon Dioxide Anion Gap BUN Creatinine Est GFR ( Amer) Est GFR (Non-Af Amer) POC Glucose (mg/dL) 100 Random Glucose Hemoglobin A1c Calcium Total Bilirubin GGT AST ALT Alkaline Phosphatase Ammonia 78 H NT-Pro-B Natriuret Pep Total Protein Albumin Globulin Albumin/Globulin Ratio Triglycerides Cholesterol LDL Cholesterol Direct HDL Cholesterol Amylase Lipase Vitamin B12 Folate Venous Blood Potassium 3.8 Urine Color Urine Clarity Urine pH Ur Specific [place] Urine Protein Urine Glucose (UA) Urine Ketones Urine Blood Urine Nitrate Urine Bilirubin Urine Urobilinogen Ur Leukocyte Esterase Urine WBC (Auto) Urine RBC (Auto) Urine Bacteria Ur Random Creatinine U Random Total Protein Ur Random Sodium Urine Microalbumin Fluid Source Fluid Appearance Fluid WBC Fluid RBC Fluid Tot Cell Count Fluid Neutrophils Fluid Lymphocytes Fld Monocyte/Macrophag Fluid Diff Path Review Fluid Comment Urine Opiates Screen Urine Methadone Screen Ur Barbiturates Screen Ur Phencyclidine Scrn Ur Amphetamines Screen U Benzodiazepines Scrn U Oth Cocaine Metabols U Cannabinoids Screen Hepatitis A IgM Ab Hep Bs Antigen Hep B Core IgM Ab Hepatitis C Antibody 08/21/17 08/21/17 08/21/17 06:45 06:45 06:45 WBC 16.1 H RBC 2.70 L Hgb 10.6 L Hct 29.3 L MCV 108.4 H MCH 39.2 H MCHC 36.2 RDW 14.1 Plt Count 257 MPV 9.5 Neut % (Auto) 73.6 Lymph % (Auto) 13.2 L [place] % (Auto) 11.6 H Eos % (Auto) 1.3 Baso % (Auto) 0.3 Neut # (Auto) 11.8 H Lymph # (Auto) 2.1 [place] # (Auto) 1.9 H Eos # (Auto) 0.2 Baso # (Auto) 0.1 PT 18.4 H INR 1.6 APTT pO2 VBG pH VBG pCO2 VBG HCO3 VBG Total CO2 VBG O2 Sat (Calc) VBG Base Excess VBG Potassium Sodium 124 L Chloride 93 L Glucose Lactate FiO2 Potassium 3.7 Carbon Dioxide 20 L Anion Gap 15 BUN 51 H Creatinine 3.5 H Est GFR ( Amer) 22 Est GFR (Non-Af Amer) 18 POC Glucose (mg/dL) Random Glucose 99 Hemoglobin A1c Calcium 7.8 L Total Bilirubin 23.9 H GGT 227 H AST 153 H ALT 47 Alkaline Phosphatase 166 H D Ammonia NT-Pro-B Natriuret Pep Total Protein 7.7 Albumin 2.7 L Globulin 5.0 H Albumin/Globulin Ratio 0.5 L Triglycerides 214 H Cholesterol 116 LDL Cholesterol Direct 75 HDL Cholesterol 6 L Amylase 130 H Lipase Vitamin B12 Folate Venous Blood Potassium Urine Color Urine Clarity Urine pH Ur Specific [place] Urine Protein Urine Glucose (UA) Urine Ketones Urine Blood Urine Nitrate Urine Bilirubin Urine Urobilinogen Ur Leukocyte Esterase Urine WBC (Auto) Urine RBC (Auto) Urine Bacteria Ur Random Creatinine U Random Total Protein Ur Random Sodium Urine Microalbumin Fluid Source Fluid Appearance Fluid WBC Fluid RBC Fluid Tot Cell Count Fluid Neutrophils Fluid Lymphocytes Fld Monocyte/Macrophag Fluid Diff Path Review Fluid Comment Urine Opiates Screen Urine Methadone Screen Ur Barbiturates Screen Ur Phencyclidine Scrn Ur Amphetamines Screen U Benzodiazepines Scrn U Oth Cocaine Metabols U Cannabinoids Screen Hepatitis A IgM Ab Hep Bs Antigen Hep B Core IgM Ab Hepatitis C Antibody 08/21/17 08/21/17 08/21/17 06:45 06:45 06:45 WBC RBC Hgb Hct MCV MCH MCHC RDW Plt Count MPV Neut % (Auto) Lymph % (Auto) [place] % (Auto) Eos % (Auto) Baso % (Auto) Neut # (Auto) Lymph # (Auto) [place] # (Auto) Eos # (Auto) Baso # (Auto) PT INR APTT pO2 VBG pH VBG pCO2 VBG HCO3 VBG Total CO2 VBG O2 Sat (Calc) VBG Base Excess VBG Potassium Sodium Chloride Glucose Lactate FiO2 Potassium Carbon Dioxide Anion Gap BUN Creatinine Est GFR ( Amer) Est GFR (Non-Af Amer) POC Glucose (mg/dL) Random Glucose Hemoglobin A1c 4.0 L Calcium Total Bilirubin GGT AST ALT Alkaline Phosphatase Ammonia 71 H NT-Pro-B Natriuret Pep Total Protein Albumin Globulin Albumin/Globulin Ratio Triglycerides Cholesterol LDL Cholesterol Direct HDL Cholesterol Amylase Lipase Vitamin B12 Folate Venous Blood Potassium Urine Color Urine Clarity Urine pH Ur Specific [place] Urine Protein Urine Glucose (UA) Urine Ketones Urine Blood Urine Nitrate Urine Bilirubin Urine Urobilinogen Ur Leukocyte Esterase Urine WBC (Auto) Urine RBC (Auto) Urine Bacteria Ur Random Creatinine U Random Total Protein Ur Random Sodium Urine Microalbumin Fluid Source Fluid Appearance Fluid WBC Fluid RBC Fluid Tot Cell Count Fluid Neutrophils Fluid Lymphocytes Fld Monocyte/Macrophag Fluid Diff Path Review Fluid Comment Urine Opiates Screen Urine Methadone Screen Ur Barbiturates Screen Ur Phencyclidine Scrn Ur Amphetamines Screen U Benzodiazepines Scrn U Oth Cocaine Metabols U Cannabinoids Screen Hepatitis A IgM Ab Negative Hep Bs Antigen Negative Hep B Core IgM Ab Negative Hepatitis C Antibody Negative 08/21/17 08/21/17 08/21/17 06:45 07:23 11:33 WBC RBC Hgb Hct MCV MCH MCHC RDW Plt Count MPV Neut % (Auto) Lymph % (Auto) [place] % (Auto) Eos % (Auto) Baso % (Auto) Neut # (Auto) Lymph # (Auto) [place] # (Auto) Eos # (Auto) Baso # (Auto) PT INR APTT pO2 VBG pH VBG pCO2 VBG HCO3 VBG Total CO2 VBG O2 Sat (Calc) VBG Base Excess VBG Potassium Sodium Chloride Glucose Lactate FiO2 Potassium Carbon Dioxide Anion Gap BUN Creatinine Est GFR ( Amer) Est GFR (Non-Af Amer) POC Glucose (mg/dL) 89 109 Random Glucose Hemoglobin A1c Calcium Total Bilirubin GGT AST ALT Alkaline Phosphatase Ammonia NT-Pro-B Natriuret Pep Total Protein Albumin Globulin Albumin/Globulin Ratio Triglycerides Cholesterol LDL Cholesterol Direct HDL Cholesterol Amylase Lipase Vitamin B12 > 1000 H Folate > 20.0 Venous Blood Potassium Urine Color Urine Clarity Urine pH Ur Specific [place] Urine Protein Urine Glucose (UA) Urine Ketones Urine Blood Urine Nitrate Urine Bilirubin Urine Urobilinogen Ur Leukocyte Esterase Urine WBC (Auto) Urine RBC (Auto) Urine Bacteria Ur Random Creatinine U Random Total Protein Ur Random Sodium Urine Microalbumin Fluid Source Fluid Appearance Fluid WBC Fluid RBC Fluid Tot Cell Count Fluid Neutrophils Fluid Lymphocytes Fld Monocyte/Macrophag Fluid Diff Path Review Fluid Comment Urine Opiates Screen Urine Methadone Screen Ur Barbiturates Screen Ur Phencyclidine Scrn Ur Amphetamines Screen U Benzodiazepines Scrn U Oth Cocaine Metabols U Cannabinoids Screen Hepatitis A IgM Ab Hep Bs Antigen Hep B Core IgM Ab Hepatitis C Antibody 08/21/17 08/21/17 08/21/17 12:54 14:37 14:37 WBC RBC Hgb Hct MCV MCH MCHC RDW Plt Count MPV Neut % (Auto) Lymph % (Auto) [place] % (Auto) Eos % (Auto) Baso % (Auto) Neut # (Auto) Lymph # (Auto) [place] # (Auto) Eos # (Auto) Baso # (Auto) PT INR APTT pO2 VBG pH VBG pCO2 VBG HCO3 VBG Total CO2 VBG O2 Sat (Calc) VBG Base Excess VBG Potassium Sodium Chloride Glucose Lactate FiO2 Potassium Carbon Dioxide Anion Gap BUN Creatinine Est GFR ( Amer) Est GFR (Non-Af Amer) POC Glucose (mg/dL) Random Glucose Hemoglobin A1c Calcium Total Bilirubin GGT AST ALT Alkaline Phosphatase Ammonia NT-Pro-B Natriuret Pep Total Protein Albumin Globulin Albumin/Globulin Ratio Triglycerides Cholesterol LDL Cholesterol Direct HDL Cholesterol Amylase Lipase Vitamin B12 Folate Venous Blood Potassium Urine Color Dark yellow Urine Clarity Clear Urine pH 6.5 Ur Specific [place] 1.010 Urine Protein Trace Urine Glucose (UA) 100 Urine Ketones Negative Urine Blood Negative Urine Nitrate Negative Urine Bilirubin Large Urine Urobilinogen 0.2 Ur Leukocyte Esterase Negative Urine WBC (Auto) 3 Urine RBC (Auto) 1 Urine Bacteria Rare Ur Random Creatinine U Random Total Protein Ur Random Sodium Urine Microalbumin Fluid Source Peritoneal/ascites Fluid Appearance Sl cloudy Fluid WBC 110.0 Fluid RBC 1400.0 H Fluid Tot Cell Count 100 H Fluid Neutrophils 24.0 H Fluid Lymphocytes 70.0 H Fld Monocyte/Macrophag 6 H Fluid Diff Path Review Fluid Comment TEST NOT PERFORMED Urine Opiates Screen Positive H Urine Methadone Screen Negative Ur Barbiturates Screen Negative Ur Phencyclidine Scrn Negative Ur Amphetamines Screen Negative U Benzodiazepines Scrn Negative U Oth Cocaine Metabols Negative U Cannabinoids Screen Negative Hepatitis A IgM Ab Hep Bs Antigen Hep B Core IgM Ab Hepatitis C Antibody 08/21/17 08/21/17 08/21/17 14:40 14:40 16:38 WBC RBC Hgb Hct MCV MCH MCHC RDW Plt Count MPV Neut % (Auto) Lymph % (Auto) [place] % (Auto) Eos % (Auto) Baso % (Auto) Neut # (Auto) Lymph # (Auto) [place] # (Auto) Eos # (Auto) Baso # (Auto) PT INR APTT pO2 VBG pH VBG pCO2 VBG HCO3 VBG Total CO2 VBG O2 Sat (Calc) VBG Base Excess VBG Potassium Sodium Chloride Glucose Lactate FiO2 Potassium Carbon Dioxide Anion Gap BUN Creatinine Est GFR ( Amer) Est GFR (Non-Af Amer) POC Glucose (mg/dL) 110 Random Glucose Hemoglobin A1c Calcium Total Bilirubin GGT AST ALT Alkaline Phosphatase Ammonia NT-Pro-B Natriuret Pep Total Protein Albumin Globulin Albumin/Globulin Ratio Triglycerides Cholesterol LDL Cholesterol Direct HDL Cholesterol Amylase Lipase Vitamin B12 Folate Venous Blood Potassium Urine Color Urine Clarity Urine pH Ur Specific [place] Urine Protein Urine Glucose (UA) Urine Ketones Urine Blood Urine Nitrate Urine Bilirubin Urine Urobilinogen Ur Leukocyte Esterase Urine WBC (Auto) Urine RBC (Auto) Urine Bacteria Ur Random Creatinine 137.4 U Random Total Protein 20.0 H Ur Random Sodium 10 Urine Microalbumin 28.6 H Fluid Source Fluid Appearance Fluid WBC Fluid RBC Fluid Tot Cell Count Fluid Neutrophils Fluid Lymphocytes Fld Monocyte/Macrophag Fluid Diff Path Review Fluid Comment Urine Opiates Screen Urine Methadone Screen Ur Barbiturates Screen Ur Phencyclidine Scrn Ur Amphetamines Screen U Benzodiazepines Scrn U Oth Cocaine Metabols U Cannabinoids Screen Hepatitis A IgM Ab Hep Bs Antigen Hep B Core IgM Ab Hepatitis C Antibody Attending/Attestation - Attestation I have personally seen and examined this patient.: Yes I have fully participated in the care of the patient.: Yes I have reviewed all pertinent clinical information: Yes Notes (Text): 08/21/17 18:24 I have seen and examined patient with GI fellow and regional medical director. Agree with above documentation with the following additions. In brief, this is a 52 year old male with history of ETOH abuse who presents to hospital with complaint of progressive abdominal distention and dyspnea. His symptoms have been progressively getting worse over the past 3 weeks. He reports being admitted recently to [facility] for similar complaints and underwent paracentesis. Since hospital discharge he was not able to establish medical care or take any advised medications due to insurance related issues. He denies abdominal pain, nausea, vomiting, fever/chills, weight loss, rectal bleeding. He does admit to worsening jaundice and claims to have stopped drinking ETOH one month ago. No prior endoscopic evaluation. Review of vitals from today shows tachycardia. Decompensated cirrhosis, suspected secondary to ETOH - admission MELD of 29 Abdominal distention - ascites Renal insufficiency - unclear if chronic or acute - Low sodium diet as tolerated - Patient underwent large volume paracentesis today, negative for SBP - Albumin replacement therapy ordered - Patient will require IVF bolus challenge and close monitoring of creatinine - Obtain urine electrolytes and follow up nephrology recommendations, ?HRS - Obtain reports of baseline creatinine from hospital admission at [facility] - Begin lactulose and xifaxan therapy for prevention of HE - Patient is currently not candidate for consideration of liver transplantation due to medication non-compliance and recent ETOH abuse. Overall prognosis given clinical scenario with renal failure is quite poor with increased short term 30 day mortality. Will continue to monitor patient clinical course.
--- NOTE | 2017-08-21 09:09 | RAD ---
Chest x-ray single frontal view History: Shortness of breath. Comparison: None available. Findings: Mild linear increased markings at the right lung base may represent some mild atelectasis and or subtle infiltrate. Clinical correlation. Heart size within normal limits. Degenerative changes in the spine. Impression: Mild linear increased markings at the right lung base may represent some mild atelectasis and or subtle infiltrate. Clinical correlation.
[2017-08-21] MEDS: Multiple Vitamins Tab PO SCH (09:54)
[2017-08-21] MEDS ORDERED: Pneumococcal 23-Valent Vaccine IM ONE (10:00)
[2017-08-21] MEDS ORDERED: Albumin Human 25% (12.5 gm/50 ml) IV SCH (10:00)
[2017-08-21] MEDS ORDERED: Multiple Vitamins Tab PO SCH (10:00)
[2017-08-21] MEDS ORDERED: Influenza Vaccine 60 mcg/0.5 mL SYR (4YR UP) IM ONE (10:00)
[2017-08-21 12:29] LABS: FOLATE > 20.0 ng/mL
[2017-08-21 12:57] LABS: BODY FLUID TYPE PERITONEAL/ASCITES
--- NOTE | 2017-08-21 13:18 | US ---
Date of Procedure: 08/21/2017 PROCEDURE: Ultrasound-guided paracentesis, CPT 73103 Medications: 7 cc 1% Lidocaine HISTORY: Ascites, abdominal pain, cirrhosis TECHNIQUE: Following informed consent , the patient was placed supine on the stretcher and the site was marked. A limited abdominal ultrasound was performed that showed a large amount of intra-abdominal fluid. Procedural time out was called and the Pt's abdomen was marked and prepped and draped in the usual sterile fashion. Ultrasound-guided large volume paracentesis performed. A total of 6 liters of straw colored fluid was removed without complication. IMPRESSION: Ultrasound-guided large volume paracentesis.
--- NOTE | 2017-08-21 13:21 | PCM.SURG1 ---
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 Specimen/Specimens Removed: 6 liters of straw colored fluid Estimated Blood Loss: EBL {In ML}: 0 Blood Products Given: N/A Drains Used: No Drains Post-Op Condition: Fair Date of Surgery/Procedure: 08/21/17 Time of Surgery/Procedure: 12:45
[2017-08-21 14:27] LABS: BF GROSS APPEARANCE SL CLOUDY (CLEAR); BODY FLUID MONO/MACROPHAGE 6 % (0-0); BODY FLUID TOTAL COUNT 100 (0-0)
[2017-08-21 15:24] LABS: URINE BACTERIA RARE (<OCC)
[2017-08-21 15:29] LABS: CREATININE, RANDOM URINE 137.4 mg/dL
[2017-08-21 15:38] LABS: URINE BILIRUBIN LARGE (NEGATIVE); URINE CLARITY Clear (Clear); URINE COLOR DARK YELLOW (YELLOW); URINE GLUCOSE (UA) 100 mg/dL (Normal)
[2017-08-21 15:39] LABS: PH,URINE 6.5 (5.0-8.0); URINE BLOOD NEGATIVE (NEGATIVE); URINE LEUKOCYTE ESTERASE NEGATIVE Leu/uL (Negative); URINE NITRATE NEGATIVE (NEGATIVE); URINE PROTEIN TRACE mg/dL (NEGATIVE); URINE UROBILINOGEN 0.2 mg/dL (0.2-1.0)
[2017-08-21 15:44] LABS: BARBITURATES, UR NEGATIVE (NEGATIVE); BENZODIAZEPINES, UR NEGATIVE (NEGATIVE); PHENCYCLIDINE, UR NEGATIVE (NEGATIVE)
[2017-08-21 15:59] LABS: OPIATES, UR POSITIVE (NEGATIVE)
--- NOTE | 2017-08-22 02:41 | CON ---
DATE: NEPHROLOGY CONSULTATION HISTORY OF PRESENT ILLNESS: The patient is a 52-year-old male with past medical history of recently diagnosed liver disease and renal insufficiency, presents to ED yesterday with shortness of breath and worsening abdominal distention, found to have severe renal insufficiency and liver disease; Nephrology consulted for JUAN M and hyponatremia. The patient was heavy drinker up until about one month ago; would drink about two bottles of whisky daily in addition to several beers for the past 20 to 30 years. The patient presented to outside hospital earlier this month and at that time was told he has liver and kidney disease; did not have any followup subsequently due to lack of insurance, further records unavailable from that hospital visit. The patient reports worsening shortness of breath and abdominal distention, now improved after having abdominal paracentesis done today with 6 liters of straw-colored fluid removed; appetite has been fair. The patient denies any nausea or vomiting or diarrhea. PAST MEDICAL HISTORY: As above. SOCIAL HISTORY: Heavy alcohol drinker, quit recently. FAMILY HISTORY: None per the patient. REVIEW OF SYSTEMS: CONSTITUTIONAL: No fever or chills. HEENT: No change in vision. CARDIOVASCULAR: No chest pain or palpitations. RESPIRATORY: As per HPI, dyspnea. GI: As per HPI. : Reports dark colored urine, otherwise no change in urine output. SKIN: Jaundiced. NEURO: Reportedly has been having some confusion. HEMATOLOGIC: Easy bleeding. PHYSICAL EXAMINATION: VITAL SIGNS: This morning, blood pressure 102/69, heart rate 92, respirations 20, temperature 98.0, and O2 saturation 97% on room air. GENERAL: No distress, lying comfortably in bed, able to converse in full sentences. HEENT: Grossly icteric, otherwise no cervical lymphadenopathy. RESPIRATORY: Lungs are clear to auscultation bilaterally. No rales. No rhonchi. CARDIOVASCULAR: Heart sounds S1 and S2 normal. No murmurs. No gallops. No rubs. GASTROINTESTINAL: Abdomen soft, mildly distended, nontender. GENITOURINARY: No bladder distention. EXTREMITIES: 2+ bilateral lower leg edema. SKIN: Jaundiced, otherwise warm. No cyanosis. NEUROLOGIC: Asterixis present. PSYCHIATRIC: Not agitated. LABORATORY DATA: This morning CBC, WBC 16.1, hemoglobin 10.6, hematocrit 29.3, platelets 257. Chemistry panel: Sodium 124, potassium 3.7, chloride 93, bicarbonate 20, BUN 51, creatinine 3.5, glucose 99, calcium 7.8, total bilirubin 23.9, albumin 2.7, ammonia 71. ABG from last night, pH of 7.41, pCO2 of 34. Chest x-ray, lungs are clear. Renal ultrasound, questionable echogenicity bilaterally, otherwise not atrophic. ASSESSMENT AND PLAN: 1. Acute kidney injury, appears to have nonoliguric renal failure in the setting of severe liver disease; urine studies not yet available; has mild normal anion gap metabolic acidosis in the setting of renal insufficiency; otherwise stable potassium and has volume excess on exam, which is consistent with hepatic cirrhosis and overall sodium excess state. 2. We will check urine microscopy, obtaining urine lytes prior to volume replenishment with IV albumin 1 gm/kg over the 24 hours. We will subsequently recheck urine lytes afterwards. 3. Checking urine for protein. At present, we will initiate workup for glomerular process. 4. Ascites. The patient is expected to have recurrent ascites in the setting of liver cirrhosis. Once stabilized and after etiology of acute kidney injury is better determined, we will likely need to be placed on standing diuretics. We will reassess at that time. 5. 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 Volume replenishment with IV albumin should help also at this point. Thank you for this consult. We will be following up closely. Nestor Roman MD
--- NOTE | 2017-08-22 07:11 | CP.PCM.PN ---
<Yonny Casas - Last Filed: 08/22/17 16:25> Subjective - Date & Time of Evaluation Date of Evaluation: 08/22/17 Time of Evaluation: 06:00 - Subjective Subjective: GI Progress note: Pt seen and examined at bedside. No acute events overnight. Pt complains of having alot of gas and need to burp but is unable to. Denies any abdominal pain , nausea, vomiting, or diarrhea. No other complaints. 12 Point ROS performed and negative other than stated above. Objective - Vital Signs/Intake and Output Vital Signs (last 24 hours): Temp Pulse Resp BP Pulse Ox 98.5 F 94 H 20 122/73 96 08/22/17 00:00 08/22/17 00:00 08/22/17 00:00 08/22/17 00:00 08/22/17 00:00 - Medications Medications: Current Medications Folic Acid (Folic Acid) 1 mg PO DAILY [facility] Last Admin: 08/21/17 09:54 Dose: 1 mg Albumin Human (Albumin Human 25% (12.5 Gm/50 Ml)) 50 mls @ 50 mls/hr IV Q1H [facility] Stop: 08/22/17 15:59 Albumin Human (Albumin Human 25% (12.5 Gm/50 Ml)) 50 mls @ 50 mls/hr IV Q1H [facility] Stop: 08/23/17 15:59 Last Admin: 08/21/17 16:15 Dose: 50 mls/hr Lactulose (Enulose) 20 gm PO BID [facility] Last Admin: 08/21/17 18:00 Dose: 20 gm Multivitamins (Hexavitamin) 1 tab PO DAILY [facility] Last Admin: 08/21/17 09:54 Dose: 1 tab Rifaximin (Xifaxan) 550 mg PO BID [facility] Last Admin: 08/21/17 19:23 Dose: 550 mg Thiamine HCl (Vitamin B1 Tab) 100 mg PO DAILY [facility] Last Admin: 08/21/17 09:56 Dose: 100 mg - Labs Labs: 08/21/17 06:45 08/21/17 06:45 PT 18.4 SECONDS (9.7-12.2) H 08/21/17 06:45 INR 1.6 08/21/17 06:45 APTT 34 SECONDS (21-34) 08/20/17 20:30 - Constitutional Appears: No Acute Distress - Head Exam Head Exam: ATRAUMATIC, NORMOCEPHALIC - Eye Exam Eye Exam: EOMI - ENT Exam ENT Exam: Mucous Membranes Moist - Respiratory Exam Respiratory Exam: Clear to Ausculation Bilateral. absent: Rales, Wheezes - Cardiovascular Exam Cardiovascular Exam: REGULAR RHYTHM, +S1, +S2 - GI/Abdominal Exam GI & Abdominal Exam: Distended, Soft, Normal Bowel Sounds. absent: Tenderness, Organomegaly Additional comments: Mild distension - Extremities Exam Extremities Exam: absent: Calf Tenderness, Tenderness - Neurological Exam Neurological Exam: Alert, Awake, Oriented x3 - Psychiatric Exam Psychiatric exam: Normal Affect, Normal Mood - Skin Skin Exam: Dry, Intact, Warm Assessment and Plan - Assessment and Plan (Free Text) Assessment: 61 M with past medical history of liver disease presents with decompensated cirrhosis from presumed ETOH abuse. S/p large volume paracenetsis, negative for SBP POD 1 1. Decompensated cirrhosis, suspected secondary to ETOH 2. Ascites 3. Renal insufficiency (baseline 0.7-0.9) - Suspected HRS - Fluid challenge yesterday with NS 500ml bolus - Cont Albumin 1g/kg x 3 days - Started on Midodrine and Octreotide today - as patient did not respond to the fluid challenge - Urine electrolytes - Likely FENA calculated to be 0.2 - Likely pre-renal - Cont lactulose and Xifaxan therapy for prevention of HE, titrate to 2-3 BMs daily - IR consult - Paracentesis, neg for SBP - F/u Nephrology consultation for JUAN M vs suspected HRS - Started Simethicone due to gaseous discomfort - D/c any PPI - Low sodium diet as tolerated - I/O and daily weights - Avoid nephrotoxic medications - Patient is currently not candidate for liver transplantation due to medication non-compliance and recent ETOH abuse. - Will continue to monitor patient clinical course. - Case discussed with hepatology team at [facility] at [place] and pt was accepted to facility for alcoholic cirrhosis with MELD score of 37. Case discussed with hepatology fellow Dr. Jena Rodriguez and accepting attending physician attending Dr Obrien. Primary medical doctor - Dr Aleman made aware as well as the patient. Transfer center will contact the floor for more information. Pt was seen and plan discussed in detail with Dr Goyal. <Alok Goyal - Last Filed: 08/23/17 09:01> Objective - Vital Signs/Intake and Output Vital Signs (last 24 hours): Temp Pulse Resp BP Pulse Ox 98.2 F 105 H 21 145/84 97 08/23/17 00:00 08/23/17 00:00 08/23/17 00:00 08/23/17 00:00 08/23/17 00:00 - Labs Labs: 08/22/17 07:27 08/22/17 19:55 PT 20.4 SECONDS (9.7-12.2) H 08/22/17 11:45 INR 1.8 08/22/17 11:45 APTT 34 SECONDS (21-34) 08/20/17 20:30 Attending/Attestation - Attestation I have personally seen and examined this patient.: Yes I have fully participated in the care of the patient.: Yes I have reviewed all pertinent clinical information, including history, physical exam and plan: Yes Notes (Text): 08/22/17 16:59 52 year old male with alcoholic cirrhosis admitted with ascites and acute renal failure. 1. Alcoholic cirrhosis 2. Ascites 3. Hepatorenal syndrome Plan: -end stage liver disease with worsening renal failure -no evidence of sbp or gi bleeding -continue supportive measures as above -start midodrine/octreotide/albumin for renal failure -transfer to [facility] considering MELD 37 -poor prognosis
--- NOTE | 2017-08-22 07:14 | CP.PCM.PN ---
Subjective - Date & Time of Evaluation Date of Evaluation: 08/22/17 Time of Evaluation: 07:10 - Subjective Subjective: Medicine progress note for Dr. Subramanian Patient seen and examined. Objective - Vital Signs/Intake and Output Vital Signs (last 24 hours): Temp Pulse Resp BP Pulse Ox 98.5 F 94 H 20 122/73 96 08/22/17 00:00 08/22/17 00:00 08/22/17 00:00 08/22/17 00:00 08/22/17 00:00 - Medications Medications: Current Medications Folic Acid (Folic Acid) 1 mg PO DAILY [facility] Last Admin: 08/21/17 09:54 Dose: 1 mg Albumin Human (Albumin Human 25% (12.5 Gm/50 Ml)) 50 mls @ 50 mls/hr IV Q1H [facility] Stop: 08/22/17 15:59 Albumin Human (Albumin Human 25% (12.5 Gm/50 Ml)) 50 mls @ 50 mls/hr IV Q1H [facility] Stop: 08/23/17 15:59 Last Admin: 08/21/17 16:15 Dose: 50 mls/hr Lactulose (Enulose) 20 gm PO BID [facility] Last Admin: 08/21/17 18:00 Dose: 20 gm Multivitamins (Hexavitamin) 1 tab PO DAILY [facility] Last Admin: 08/21/17 09:54 Dose: 1 tab Rifaximin (Xifaxan) 550 mg PO BID [facility] Last Admin: 08/21/17 19:23 Dose: 550 mg Thiamine HCl (Vitamin B1 Tab) 100 mg PO DAILY [facility] Last Admin: 08/21/17 09:56 Dose: 100 mg - Labs Labs: 08/21/17 06:45 08/21/17 06:45 PT 18.4 SECONDS (9.7-12.2) H 08/21/17 06:45 INR 1.6 08/21/17 06:45 APTT 34 SECONDS (21-34) 08/20/17 20:30 - Skin Additional comments: - Constitutional Appears: No Acute Distress - Head Exam Head Exam: ATRAUMATIC, NORMOCEPHALIC - Eye Exam Eye Exam: EOMI, Scleral icterus - ENT Exam ENT Exam: Mucous Membranes Moist - Respiratory Exam Respiratory Exam: Decreased Breath Sounds, NORMAL BREATHING PATTERN. absent: Rales, Rhonchi, Wheezes - Cardiovascular Exam Cardiovascular Exam: REGULAR RHYTHM, +S1, +S2 - GI/Abdominal Exam GI & Abdominal Exam: Distended, Normal Bowel Sounds. absent: Guarding, Tenderness - Extremities Exam Extremities Exam: Pedal Edema - Neurological Exam Neurological Exam: Alert, Awake, Oriented x3 - Psychiatric Exam Psychiatric exam: Anxious - Skin Skin Exam: Dry, Warm Additional comments: skin jaundiced Assessment and Plan - Assessment and Plan (Free Text) Plan: Ascites with jaundice Alcoholic liver disease vs infectious Negative hepatitis panel GI consult placed- Dr. Tony cooper appreciated Abdominal ultrasound confirms cirrhosis Paracentesis 08/21/17 removed 6 liters of straw colored fluid Albumin replenishment x 8 doses on 08/21/17, 6 doses on 08/22/17, and 6 doses on 08/23 per GI Per GI, holding off on Aldactone and Propranolol due to JUAN M JUAN M No documented history of renal disease Nephro consult place- Dr. Alejandro cooper appreciated Follow up renal/bladder ultrasound shows medical renal disease and unremarkable bladder ultrasound f/u urine lytes Hyperammonemia Lactulose 20mg PO BID Rifaximin 550 mg PO BID Patient more awake and alert today on rounds Dyspnea Likely secondary to increased intra-abdominal pressure from ascites VBG: PH- 7.41, CO2- 34, HCO3- 21.4 f/u repeat lactate Monitor Hyponatremia Fluid restricted 1200 cc Monitor Hx of EtOH abuse Thiamine/Folate/MVI CIWA protocol Elevated blood glucose Hemoglobin A1C: 4.0 Prophylaxis PPI discontinued per GI DVT ppx contraindicated due to bleeding risk Disposition: Poor prognosis with MELD score of 38. [facility] referral. Will await records from [place]. Echo ordered to assess cardiac status. Patient unaware he had cirrhosis.
[2017-08-22 08:25] LABS: ALB/GLOB RATIO 0.6 (1.0-2.1); ALBUMIN 2.9 g/dL (3.5-5.0); BASO # 0.2 K/uL (0.0-0.2); EOS # 0.2 K/uL (0.0-0.7); EOS % 1.3 % (0.0-4.0); HEMOGLOBIN 10.6 g/dL (12.0-18.0); LYMPH # 1.8 K/uL (1.0-4.3); LYMPH % 10.6 % (20.0-40.0); MEAN CELL VOLUME 108.1 fL (80.0-94.0); MEAN CORPUSCULAR HEMOGLOBIN 39.4 pg (27.0-31.0); MEAN CORPUSCULAR HGB CONC 36.4 g/dL (33.0-37.0); MEAN PLATELET VOLUME 9.5 fL (7.2-11.7); MONO # 2.2 K/uL (0.0-0.8); MONO % 12.9 % (0.0-10.0); NEUT # 12.7 K/uL (1.8-7.0); NEUT % 74.2 % (50.0-75.0); RBC 2.7 Mil/uL (4.40-5.90); WHITE BLOOD COUNT 17.1 K/uL (4.8-10.8)
[2017-08-22] MEDS ORDERED: Potassium Chloride 20 mEq ER Tab PO ONE (08:48)
[2017-08-22] MEDS: Multiple Vitamins Tab PO SCH (09:24)
[2017-08-22] MEDS: Albumin Human 25% (12.5 gm/50 ml) IV SCH ×4 (09:41→21:10)
[2017-08-22 09:59] LABS: MAGNESIUM 2.6 mg/dL (1.6-2.3)
[2017-08-22] MEDS ORDERED: Albumin Human 5% (12.5 gm/250 ml) IV SCH (10:00)
[2017-08-22] MEDS: Simethicone 40 mg/0.6 ml Liquid (30 ml) PO SCH ×4 (10:21→21:11)
[2017-08-22] MEDS ORDERED: Albuterol-Ipratrop 3 mg / 0.5 (3 ml) UD INH PRN (11:07)
[2017-08-22 11:57] LABS: INR 1.8; PROTHROMBIN TIME 20.4 SECONDS (9.7-12.2)
[2017-08-22] MEDS ORDERED: Sodium Chloride 0.9% 500 ML IV SCH (13:15)
[2017-08-22] MEDS ORDERED: Sodium Chloride 0.9% 1,000 ML IV SCH (15:00)
--- NOTE | 2017-08-22 15:27 | CP.PCM.PN ---
Subjective - Date & Time of Evaluation Date of Evaluation: 08/22/17 Time of Evaluation: 12:00 - Subjective Subjective: 52 yo M w/ pmh of recently diagnosed liver disease, recent ETOH abuse, admitted with decompensated liver cirrhosis, JUAN M; Patient reports abd discomfort from "gas" earlier today; otherwise, tolerating diet; denies shortness of breath; Objective - Vital Signs/Intake and Output Vital Signs (last 24 hours): Temp Pulse Resp BP Pulse Ox 98.1 F 104 H 20 105/69 96 08/22/17 08:00 08/22/17 08:00 08/22/17 08:00 08/22/17 08:00 08/22/17 08:00 Intake and Output: 08/22/17 08/22/17 06:59 18:59 Intake Total 470 Balance 470 - Medications Medications: Current Medications Albumin Human (Albumin Human 25% (12.5 Gm/50 Ml)) 12.5 gm IV Q4H [facility] Stop: 08/23/17 13:01 Last Admin: 08/22/17 13:26 Dose: 12.5 gm Albuterol/Ipratropium (Duoneb 3 Mg/0.5 Mg (3 Ml) Ud) 3 ml INH RQ4 PRN PRN Reason: Shortness of Breath Folic Acid (Folic Acid) 1 mg PO DAILY [facility] Last Admin: 08/22/17 09:24 Dose: 1 mg Sodium Chloride (Sodium Chloride 0.9%) 1,000 mls @ 100 mls/hr IV .Q10H [facility] Last Admin: 08/22/17 14:43 Dose: 100 mls/hr Lactulose (Enulose) 20 gm PO BID [facility] Midodrine (Proamatine) 5 mg PO TID [facility] Last Admin: 08/22/17 13:27 Dose: 5 mg Multivitamins (Hexavitamin) 1 tab PO DAILY [facility] Last Admin: 08/22/17 09:24 Dose: 1 tab Octreotide Acetate (Sandostatin) 100 mcg SC TID [facility] Last Admin: 08/22/17 13:28 Dose: 100 mcg Rifaximin (Xifaxan) 550 mg PO BID [facility] Last Admin: 08/22/17 09:24 Dose: 550 mg Simethicone (Mylicon Liq) 40 mg PO QID [facility] Last Admin: 08/22/17 13:27 Dose: 40 mg Thiamine HCl (Vitamin B1 Tab) 100 mg PO DAILY [facility] Last Admin: 08/22/17 09:24 Dose: 100 mg - Labs Labs: 08/22/17 07:27 08/22/17 07:27 PT 20.4 SECONDS (9.7-12.2) H 08/22/17 11:45 INR 1.8 08/22/17 11:45 APTT 34 SECONDS (21-34) 08/20/17 20:30 - Constitutional Appears: Non-toxic, Agitated - Eye Exam Eye Exam: Scleral icterus - ENT Exam ENT Exam: Mucous Membranes Moist - Respiratory Exam Respiratory Exam: Clear to Ausculation Bilateral. absent: Respiratory Distress - Cardiovascular Exam Cardiovascular Exam: RRR, +S1, +S2 - GI/Abdominal Exam GI & Abdominal Exam: Distended, Soft. absent: Tenderness - Extremities Exam Additional comments: 2+ b/l lower leg edema; - Neurological Exam Neurological Exam: Alert, Awake - Psychiatric Exam Psychiatric exam: Agitated - Skin Skin Exam: Dry Additional comments: jaundiced; Assessment and Plan - Assessment and Plan (Free Text) Assessment: 1- Acute Renal Failure - In the setting of decompensated liver cirrhosis, non- oliguric renal failure with marked increase in serum creatinine since labs from ~1 month ago; s/p volume challenge with IV albumin yesterday (>1g/kg), however, with no significant improvement in renal function; low Ur Na prior to volume challenge, awaiting repeat lab to look for improvement; urine micro directly examined yesterday, showing bile stained granular casts which goes against simple volume responsive pre-renal etiology; HRS favored diagnosis and should be treated as such until transferred to liver center; -Can continue IV albumin 1g/kg daily for next 2 days to ensure patient is volume replete but doubt this will be effective (need to monitor closely for volume overload as patient's eGFR only ~20 ml/min); -Check blood and urine cultures (high procalcitonin level) -Start midodrine 5 mg q8h and octreotide 100 mg subcu q8h; 2- Hyponatremia - In the setting of liver cirrhosis, improved with volume repletion; -1L daily PO fluid restriction; -Correct hypokalemia; 3- Hypokalemia - Need to correct to prevent precipitating hepatic encephalopathy ; giving PO KCl 40 meq; 4- Metabolic acidosis - Non-gap in the setting of renal failure; can be worsened with normal saline administration; monitor for now; 5- Abd ascites - s/p 6L removed by paracentesis yesterday; keeping intravascularly volume replete so holding off on diuretics for now;
[2017-08-22 17:51] VITALS: TEMP 98.2
[2017-08-22 17:59] LABS: OSMOLALITY,URINE 362 mosm/kg (300-1000)
--- NOTE | 2017-08-22 18:18 | CARD ---
APPROVED REPORT EXAM: Two-dimensional and M-mode echocardiogram with Doppler and color Doppler. Other Information Quality : GoodRhythm : INDICATION Dyspnea check cardiac function M-Mode DIMENSIONS Left Atrium (MM)3.69 (2.5-4.0cm)IVSd1.01 (0.7-1.1cm) Aortic Root3.43 (2.2-3.7cm)LVDd5.30 (4.0-5.6cm) Aortic Cusp Exc.1.29 (1.5-2.0cm)PWd1.07 (0.7-1.1cm) FS (%) 41 %LVDs3.12 (2.0-3.8cm) LVEF (%)72 (>50%) Mitral Valve MV E Bjftwawa70.3cm/sMV A Pcacgvsu521.5cm/sE/A ratio0.7 TDI E/Lateral E'0.0E/Medial E'0.0 Tricuspid Valve TR Peak Kovmzqzf459dm/sTR Peak [id number] LEFT VENTRICLE The left ventricle is normal size. There is normal left ventricular wall thickness. Left ventricle systolic function is normal. The Ejection Fraction is 60-65%. There is normal LV segmental wall motion. Transmitral Doppler flow pattern is Grade I-abnormal relaxation pattern. There is no ventricular septal defect visualized. RIGHT VENTRICLE The right ventricle is normal size. The right ventricular systolic function is normal. ATRIA The left atrium is mildly dilated. The right atrium size is normal. AORTIC VALVE The aortic valve is mildly sclerotic. The aortic valve is tri-cuspid. No aortic regurgitation is present. There is no aortic valvular stenosis. MITRAL VALVE The mitral valve is normal in structure. There is no evidence of mitral valve prolapse. There is no mitral valve regurgitation noted. TRICUSPID VALVE The tricuspid valve is normal in structure. There is trace tricuspid regurgitation. Right ventricular systolic pressure is estimated at less than 30 mmHg. There is no pulmonary hypertension. PULMONIC VALVE The pulmonic valve is not well visualized. There is no pulmonic valvular regurgitation. GREAT VESSELS The aortic root is normal in size. The IVC is normal in size and collapses >50% with inspiration. PERICARDIAL EFFUSION There is no pericardial effusion. <Conclusion> Left ventricle systolic function is normal. The Ejection Fraction is 60-65%. Transmitral Doppler flow pattern is Grade I-abnormal relaxation pattern.
--- NOTE | 2017-08-22 19:13 | CP.PCM.DIS ---
Provider - Provider Date of Admission: 08/20/17 23:20 Attending physician: Mani Aleman MD Consults: GI-Dr. Goyal Nephrology-Dr. Roman Time Spent in preparation of Discharge (in minutes): 50 Diagnosis - Discharge Diagnosis (1) Hepatorenal syndrome Status: Suspected (2) Ascites due to alcoholic cirrhosis Status: Acute (3) Decompensated hepatic cirrhosis Status: Acute (4) Hepatic encephalopathy Status: Acute (5) Acute kidney injury Status: Acute (6) Dyspnea Status: Resolved Hospital Course - Lab Results Lab Results: Micro Results 08/21/17 12:54 Body Fluid - Peritoneal Cavity Gram Stain - Final 08/21/17 12:54 Body Fluid - Peritoneal Cavity Body Fluid Culture - Preliminary NO GROWTH AFTER 24 HOURS Most Recent Lab Values WBC 17.1 K/uL (4.8-10.8) H 08/22/17 07:27 RBC 2.70 Mil/uL (4.40-5.90) L 08/22/17 07:27 Hgb 10.6 g/dL (12.0-18.0) L 08/22/17 07:27 Hct 29.2 % (35.0-51.0) L 08/22/17 07:27 MCV 108.1 fL (80.0-94.0) H 08/22/17 07:27 MCH 39.4 pg (27.0-31.0) H 08/22/17 07:27 MCHC 36.4 g/dL (33.0-37.0) 08/22/17 07:27 RDW 14.0 % (11.5-14.5) 08/22/17 07:27 Plt Count 223 K/uL (130-400) 08/22/17 07:27 MPV 9.5 fL (7.2-11.7) 08/22/17 07:27 Neut % (Auto) 74.2 % (50.0-75.0) 08/22/17 07:27 Lymph % (Auto) 10.6 % (20.0-40.0) L 08/22/17 07:27 [place] % (Auto) 12.9 % (0.0-10.0) H 08/22/17 07:27 Eos % (Auto) 1.3 % (0.0-4.0) 08/22/17 07:27 Baso % (Auto) 1.0 % (0.0-2.0) 08/22/17 07:27 Neut # (Auto) 12.7 K/uL (1.8-7.0) H 08/22/17 07:27 Lymph # (Auto) 1.8 K/uL (1.0-4.3) 08/22/17 07: [place] # (Auto) 2.2 K/uL (0.0-0.8) H 08/22/17 07: Eos # (Auto) 0.2 K/uL (0.0-0.7) 08/22/17 07: Baso # (Auto) 0.2 K/uL (0.0-0.2) 08/22/17 07: PT 20.4 SECONDS (9.7-12.2) H 08/22/17 11:45 INR 1.8 08/22/17 11:45 APTT 34 SECONDS (21-34) 08/20/17 20:30 pO2 22 mm/Hg (30-55) L 08/20/17 20:30 VBG pH 7.41 (7.32-7.43) 08/20/17 20:30 VBG pCO2 34 mmHg (40-60) L 08/20/17 20:30 VBG HCO3 21.4 mmol/L 08/20/17 20:30 VBG Total CO2 22.6 mmol/L (22-28) 08/20/17 20:30 VBG O2 Sat (Calc) 40.1 % (40-65) 08/20/17 20:30 VBG Base Excess -2.4 mmol/L (0.0-2.0) L 08/20/17 20:30 VBG Potassium 3.8 mmol/L (3.6-5.2) 08/20/17 20:30 Sodium 128.0 mmol/l (132-148) L 08/20/17 20:30 Chloride 94.0 mmol/L (98-107) L 08/20/17 20:30 Glucose 125 mg/dl (75-110) H 08/20/17 20:30 Lactate 2.6 mmol/L (0.7-2.1) H 08/20/17 20:30 FiO2 21.0 % 08/20/17 20:30 Sodium 128 mmol/L (132-148) L 08/22/17 07:27 Potassium 3.1 mmol/L (3.6-5.2) L 08/22/17 07:27 Chloride 96 mmol/L (98-107) L 08/22/17 07:27 Carbon Dioxide 18 mmol/L (22-30) L 08/22/17 07:27 Anion Gap 18 (10-20) 08/22/17 07:27 BUN 54 mg/dL (9-20) H 08/22/17 07:27 Creatinine 3.2 mg/dL (0.8-1.5) H 08/22/17 07:27 Est GFR ( Amer) 25 08/22/17 07:27 Est GFR (Non-Af Amer) 20 08/22/17 07:27 POC Glucose (mg/dL) 157 mg/dL (65-110) H 08/22/17 16:27 Random Glucose 88 mg/dL (75-110) 08/22/17 07:27 Hemoglobin A1c 4.0 % (4.2-6.5) L 08/21/17 06:45 Lactic Acid 1.7 mmol/L (0.7-2.1) 08/21/17 19:47 Calcium 8.0 mg/dl (8.6-10.4) L 08/22/17 07:27 Phosphorus 4.2 mg/dL (2.5-4.5) 08/22/17 07:27 Magnesium 2.6 mg/dL (1.6-2.3) H 08/22/17 07:27 Total Bilirubin 23.8 mg/dL (0.2-1.3) H 08/22/17 07:27 GGT 227 U/L (8-78) H 08/21/17 06:45 AST 126 U/L (17-59) H 08/22/17 07:27 ALT 44 U/L (21-72) 08/22/17 07:27 Alkaline Phosphatase 156 U/L (38-126) H 08/22/17 07:27 Ammonia 71 umol/L (9-33) H 08/21/17 06:45 NT-Pro-B Natriuret Pep 177 pg/mL (0-900) 08/20/17 20:30 Total Protein 7.4 g/dL (6.3-8.3) 08/22/17 07:27 Albumin 2.9 g/dL (3.5-5.0) L 08/22/17 07:27 Globulin 4.6 gm/dL (2.2-3.9) H 08/22/17 07:27 Albumin/Globulin Ratio 0.6 (1.0-2.1) L 08/22/17 07:27 Triglycerides 214 mg/dL (0-149) H 08/21/17 06:45 Cholesterol 116 mg/dL (0-199) 08/21/17 06:45 LDL Cholesterol Direct 75 mg/dL (0-129) 08/21/17 06:45 HDL Cholesterol 6 mg/dL (30-70) L 08/21/17 06:45 Amylase 130 U/L (30-110) H 08/21/17 06:45 Lipase 277 U/L (23-300) 08/20/17 20:30 Vitamin B12 > 1000 pg/mL (239-931) H 08/21/17 06:45 Folate > 20.0 ng/mL 08/21/17 06:45 Procalcitonin 5.09 NG/ML (0.19-0.49) H 08/22/17 11:45 Venous Blood Potassium 3.8 mmol/L (3.6-5.2) 08/20/17 20:30 Urine Color Dark yellow (YELLOW) 08/21/17 14:37 Urine Clarity Clear (Clear) 08/21/17 14:37 Urine pH 6.5 (5.0-8.0) 08/21/17 14:37 Ur Specific [place] 1.010 (1.003-1.030) 08/21/17 14:37 Urine Protein Trace mg/dL (NEGATIVE) 08/21/17 14:37 Urine Glucose (UA) 100 mg/dL (Normal) 08/21/17 14:37 Urine Ketones Negative mg/dL (NEGATIVE) 08/21/17 14:37 Urine Blood Negative (NEGATIVE) 08/21/17 14:37 Urine Nitrate Negative (NEGATIVE) 08/21/17 14:37 Urine Bilirubin Large (NEGATIVE) 08/21/17 14:37 Urine Urobilinogen 0.2 mg/dL (0.2-1.0) 08/21/17 14:37 Ur Leukocyte Esterase Negative [place]/uL (Negative) 08/21/17 14:37 Urine WBC (Auto) 3 /hpf (0-5) 08/21/17 14:37 Urine RBC (Auto) 1 /hpf (0-3) 08/21/17 14:37 Urine Bacteria Rare (<OCC) 08/21/17 14:37 Urine Osmolality 362 mosm/kg (300-1000) 08/22/17 17:30 Ur Random Creatinine 137.4 mg/dL 08/21/17 14:40 U Random Total Protein 20.0 mg/dL (0.0-12.0) H 08/21/17 14:40 Ur Random Sodium < 5 mmol/L 08/22/17 17:30 Urine Microalbumin 28.6 mg/L (0.0-16.6) H 08/21/17 14:40 Fluid Source Peritoneal/ascites 08/21/17 12:54 Fluid Appearance Sl cloudy (CLEAR) 08/21/17 12:54 Fluid WBC 110.0 /mm3 (0.0-300.0) 08/21/17 12:54 Fluid RBC 1400.0 /mm3 (0.0-0.0) H 08/21/17 12:54 Fluid Tot Cell Count 100 (0-0) H 08/21/17 12:54 Fluid Neutrophils 24.0 % (0-0) H 08/21/17 12:54 Fluid Lymphocytes 70.0 % (0-0) H 08/21/17 12:54 Fld Monocyte/Macrophag 6 % (0-0) H 08/21/17 12:54 Fluid Diff Path Review 08/21/17 12:54 Fluid Comment TEST NOT PERFORMED 08/21/17 12:54 Urine Opiates Screen Positive (NEGATIVE) H 08/21/17 14:37 Urine Methadone Screen Negative (NEGATIVE) 08/21/17 14:37 Ur Barbiturates Screen Negative (NEGATIVE) 08/21/17 14:37 Ur Phencyclidine Scrn Negative (NEGATIVE) 08/21/17 14:37 Ur Amphetamines Screen Negative (NEGATIVE) 08/21/17 14:37 U Benzodiazepines Scrn Negative (NEGATIVE) 08/21/17 14:37 U Oth Cocaine Metabols Negative (NEGATIVE) 08/21/17 14:37 U Cannabinoids Screen Negative (NEGATIVE) 08/21/17 14:37 Hepatitis A IgM Ab Negative (NEGATIVE) 08/21/17 06:45 Hep Bs Antigen Negative (NEGATIVE) 08/21/17 06:45 Hep B Core IgM Ab Negative (NEGATIVE) 08/21/17 06:45 Hepatitis C Antibody Negative (NEGATIVE) 08/21/17 06:45 - Hospital Course Hospital Course: On admission: "Patient is a 52 year old male who presents to the ED with shortness of breath and abdominal fullness for the past 3 weeks. He is accompanied by his and daughter who offer details of his history. They explain that on July 29, 2017 , the patient went to [place] urgent care for similar symptoms and was told he has liver disease. Patient does not have a PMD due to lack of insurance and so, he did not follow up with any doctors after that visit. He is presenting to the ED this evening with persistent abdominal distention, associated with difficulty breathing and right sided lower back pain. He denies fevers, chills, chest pain, abdominal pain, changes in bowel movements. He reports that his urine has been dark red for several weeks now. He does have nausea but he has not vomited. Abdominal distention has also left him with lack of appetite secondary to "pressure on the stomach." This patient does not have any documented history of any medical conditions and he does not take any medicines currently. His and daughter explain that he has an extensive history of alcohol abuse and the patient acknowledges this however he states that he stopped drinking 2-3 months ago. The family insists that it was one month ago when he stopped consuming any form of alcohol. Prior alcohol consumption was clarified as 2 bottles of whiskey daily in addition to several beers for 20-30 years. The family and the patient but deny any seizures, loss of consciousness. Upon examination the patient is alert and responsive however his words are difficult to discern. His daughter states that he has been making nonsensical commentary this evening at times but he answers appropriately for the most part. " Hospital Course: Patient admitted because of shortness of breath due to ascites caused by decompensated cirrhosis from alcohol abuse. GI consult placed for Dr. Goyal and paracentesis was ordered. Patient underwent large volume paracentesis removing 6 liters of fluid. Despite this, patient remained distended. No evidence of SBP both on this admission and the recent visit to [facility] Per review of records from [place] visit on 07/29/17, patient also underwent a paracentesis draining just above 2 liters of fluid. At that time, his baseline creatinine was around 0.7; however, on this admission at [facility] just three weeks later (08/20/17), his creatinine was 3.[address] Roman was consulted to help determine the etiology of the acute kidney injury. Hepatorenal syndrome became suspected. Fluid challenge initiated with albumin. However, patient did not respond to fluid challenge. So Midodrine and Octreotide were started. Patient's calculated MELD score is 37 and Child-Yancey- Score Class C indicating poor prognosis. The GI team was able to secure a transfer to [facility]'s hepatology service under admitting physician Dr. Obrien. This is a summary of the hospital course. For more information, refer to the medical records. Discharge Exam - Head Exam Head Exam: ATRAUMATIC, NORMOCEPHALIC - Eye Exam Eye Exam: EOMI, Scleral icterus - ENT Exam ENT Exam: Mucous Membranes Moist - Respiratory Exam Respiratory Exam: Decreased Breath Sounds, NORMAL BREATHING PATTERN. absent: Rales, Rhonchi, Wheezes - Cardiovascular Exam Cardiovascular Exam: REGULAR RHYTHM, +S1, +S2 - GI/Abdominal Exam GI & Abdominal Exam: Distended, Normal Bowel Sounds, Soft. absent: Firm, Guarding, Rigid, Tenderness - Extremities Exam Extremities exam: pedal edema, pedal pulses present - Neurological Exam Neurological exam: Alert, CN II-XII Intact, Oriented x3 - Psychiatric Exam Psychiatric exam: Anxious - Skin Skin Exam: Dry, Warm Additional comments: Diffuse jaundice Discharge Plan - Follow Up Plan Condition: FAIR Disposition: Trans to Other Acute Care Hosp
[2017-08-22 20:18] LABS: CALCIUM 7.9 mg/dl (8.6-10.4)
[2017-08-23 01:46] VITALS: BP 145/84; PULSE 105; RESP 21; O2SAT 97
[2017-08-23 22:55] LABS: TOTAL PROTEIN PERITONEAL FLUID <3.0 g/dL
== END 2017-08-23 00:40 | disposition short-term general hospital (02) | DRG 432 ==
LOC: C.ER 19:13 → C.9E 23:20 → C.3T 08-21 02:44
PROVIDERS: ADMIT Family Medicine; ATTEND Family Medicine
PROC: 0W9G3ZZ Drainage of Peritoneal Cavity, Percutaneous Approach (ICD-10-PCS; principal; 2017-08-21)
DX: K70.31 Alcoholic cirrhosis of liver with ascites (principal); K76.7 Hepatorenal syndrome; K72.90 Hepatic failure, unspecified without coma; E87.1 Hypo-osmolality and hyponatremia; E87.2 Acidosis; E87.6 Hypokalemia; F17.210 Nicotine dependence, cigarettes, uncomplicated